=== PATIENT | female | born 1940 | race Caucasian/White ===

== ENCOUNTER 2018-08-11 16:35 | Observation (INO) | payer MEDICARE ==
[2018-08-11] MEDS ORDERED: LIDOCAINE 1% 10 ML VIAL INJ ONE (17:11)
[2018-08-11] MEDS ORDERED: NALOXONE HCL INJ 1 MG/ML SYG ONE (17:12)
--- NOTE | 2018-08-11 17:55 | ED.PDOC ---
History of Present Illness - General Chief Complaint: Unresponsive Stated Complaint: Unresponsive Time Seen by Provider: 08/11/18 16:52 Source: patient, EMS Exam Limitations: clinical condition - History of Present Illness Initial Comments: Patient presents after being found unresponsive this afternoon by a family member. She was last seen normal last night. The patient says that she remembers taking her normal medications, which include narcotics, last night then going to bed. The next thing she knew, she was here. Her GCS was 14 when she arrived. No other information is available because the patient cannot remember any events that occurred today. Timing/Duration: unsure Severity: moderate Improving Factors: nothing Worsening Factors: nothing Associated Symptoms: denies symptoms Allergies/Adverse Reactions: Allergies Iodine Allergy (Unknown, Unverified 04/24/13 15:41) Home Medications: Ambulatory Orders Atorvastatin Calcium [Lipitor] 40 mg PO DAILY 05/05/13 Insulin Isophane (Human) [Novolin N] 56 unit SC BEDTIME 05/05/13 Aspirin [Aspirin Adult Low Dose] 81 mg PO DAILY 01/28/15 Metformin HCl [Glucophage] 1,000 mg PO BID 01/28/15 glipiZIDE [Glucotrol] 20 mg PO BID 01/28/15 Gemfibrozil [Lopid] 600 mg PO DAILY 07/22/15 Lisinopril 20 mg PO DAILY 07/22/15 Meloxicam [Mobic] 7.5 mg PO DAILY 07/22/15 amLODIPine BESYLATE [Norvasc] 10 mg PO DAILY 07/22/15 Review of Systems - Review of Systems Constitutional: States: see HPI EENTM: States: no symptoms reported Respiratory: States: no symptoms reported Cardiology: States: no symptoms reported Gastrointestinal/Abdominal: States: no symptoms reported Genitourinary: States: no symptoms reported Musculoskeletal: States: no symptoms reported Skin: States: no symptoms reported Neurological: States: see HPI Endocrine: States: no symptoms reported Hematologic/Lymphatic: States: no symptoms reported Past Medical History (General) - Patient Medical History Hx Seizures: No Hx Stroke: No Hx Dementia: No Hx Asthma: No Hx of COPD: No Hx Cardiac Disorders: Yes - hypercholesterolemia Hx Congestive Heart Failure: No Hx Pacemaker: No Hx Hypertension: Yes Hx Thyroid Disease: No Hx Diabetes: Yes Hx Gastroesophageal Reflux: No Hx Renal Disease: No Hx Cancer: No Hx of HIV: No Hx Hepatitis C: No Hx MRSA: No Surgical History: other - Vaccination History Hx Influenza Vaccination: - Unknown Hx Pneumococcal Vaccination: - Unknown - Social History Hx Tobacco Use: No Hx Alcohol Use: No Hx Substance Use: No Hx Substance Use Treatment: No Hx Depression: No Family Medical History - Family History Mother Family History: Unknown Physical Exam - Physical Exam General Appearance: Other - Confused at presentation but alert and oriented x 3 after about 20 minutes. GCS 14 upon presentation, 15 after about 20 minutes. Eye Exam: bilateral normal Ears, Nose, Throat: normal ENT inspection Neck: non-tender, full range of motion, supple Respiratory: lungs clear, normal breath sounds Cardiovascular/Chest: normal peripheral pulses, regular rate, rhythm Gastrointestinal/Abdominal: normal bowel sounds, non tender, soft Back Exam: normal inspection, no CVA tenderness Extremity: normal range of motion, non-tender, normal inspection Neurologic: storage engineer II-XII nml as tested, no motor/sensory deficits, alert, normal mood/affect, oriented x 3 Skin Exam: normal color Lymphatic: no adenopathy Progress - Progress Progress: 08/11/18 20:24 Laboratory Tests 08/11/18 08/11/18 08/11/18 16:53 17:52 18:03 WBC RBC Hgb Hct MCV MCH MCHC RDW Plt Count MPV Absolute Neuts (auto) Absolute Lymphs (auto) Absolute Monos (auto) Absolute Eos (auto) Absolute Basos (auto) Neutrophils % Lymphocytes % Monocytes % Eosinophils % Basophils % PT 10.2 INR 1.02 PTT (SP) 25.7 D-Dimer, Quantitative Sodium Potassium Chloride Carbon Dioxide Anion Gap BUN Creatinine BUN/Creatinine Ratio POC Glucose < 40 L* Random Glucose Serum Osmolality Calcium Total Bilirubin AST ALT Alkaline Phosphatase Creatine Kinase CK-MB (CK-2) CK-MB (CK-2) % Troponin I B-Natriuretic Peptide Serum Total Protein Albumin Globulin Albumin/Globulin Ratio Urine Color Urine Appearance Urine pH Ur Specific Ragley Urine Protein Urine Glucose (UA) Urine Ketones Urine Blood Urine Nitrite Urine Bilirubin Urine Urobilinogen Ur Leukocyte Esterase Urine RBC Urine WBC Ur Epithelial Cells Urine Bacteria Salicylates Urine Opiates Screen Positive H Acetaminophen Urine Barbiturates Negative Ur Phencyclidine Scrn Negative U Amphetamin/Meth Scrn Negative U Benzodiazepines Scrn Negative U Cocaine Metab Screen Negative U Cannabinoids Screen Negative 08/11/18 08/11/18 08/11/18 18:04 18:32 18:32 WBC 6.0 RBC 3.93 L Hgb 11.5 L Hct 35.0 L MCV 89.2 MCH 29.3 MCHC 32.9 L RDW 15.5 H Plt Count 362 MPV 8.0 Absolute Neuts (auto) 5.30 Absolute Lymphs (auto) 0.30 L Absolute Monos (auto) 0.40 Absolute Eos (auto) 0.00 Absolute Basos (auto) 0.00 Neutrophils % 88.2 H Lymphocytes % 4.9 L Monocytes % 6.2 Eosinophils % 0.6 L Basophils % 0.1 PT INR PTT (SP) D-Dimer, Quantitative Sodium 139 Potassium 3.7 Chloride 99 L Carbon Dioxide 27 Anion Gap 16.7 BUN 12 Creatinine 0.80 BUN/Creatinine Ratio 15.0 POC Glucose Random Glucose Cancelled 165 H Serum Osmolality 281.0 Calcium 8.8 Total Bilirubin 0.3 AST 25 ALT 14 Alkaline Phosphatase 84 Creatine Kinase 151 H CK-MB (CK-2) 5.8 H* CK-MB (CK-2) % 3.84 Troponin I 0.02 B-Natriuretic Peptide 117.0 H Serum Total Protein 7.6 Albumin 4.0 Globulin 3.6 H Albumin/Globulin Ratio 1.1 Urine Color Urine Appearance Urine pH Ur Specific Ragley Urine Protein Urine Glucose (UA) Urine Ketones Urine Blood Urine Nitrite Urine Bilirubin Urine Urobilinogen Ur Leukocyte Esterase Urine RBC Urine WBC Ur Epithelial Cells Urine Bacteria Salicylates Urine Opiates Screen Acetaminophen Urine Barbiturates Ur Phencyclidine Scrn U Amphetamin/Meth Scrn U Benzodiazepines Scrn U Cocaine Metab Screen U Cannabinoids Screen 08/11/18 08/11/18 08/11/18 18:32 18:32 19:26 WBC RBC Hgb Hct MCV MCH MCHC RDW Plt Count MPV Absolute Neuts (auto) Absolute Lymphs (auto) Absolute Monos (auto) Absolute Eos (auto) Absolute Basos (auto) Neutrophils % Lymphocytes % Monocytes % Eosinophils % Basophils % PT INR PTT (SP) D-Dimer, Quantitative 4.02 H* Sodium Potassium Chloride Carbon Dioxide Anion Gap BUN Creatinine BUN/Creatinine Ratio POC Glucose Random Glucose Serum Osmolality Calcium Total Bilirubin AST ALT Alkaline Phosphatase Creatine Kinase CK-MB (CK-2) CK-MB (CK-2) % Troponin I B-Natriuretic Peptide Serum Total Protein Albumin Globulin Albumin/Globulin Ratio Urine Color Yellow Urine Appearance Clear Urine pH 7.0 Ur Specific Ragley 1.025 Urine Protein 100 H Urine Glucose (UA) 100 H Urine Ketones Trace Urine Blood Negative Urine Nitrite Negative Urine Bilirubin Negative Urine Urobilinogen 1.0 Ur Leukocyte Esterase Negative Urine RBC 1-3 Urine WBC 3-5 H Ur Epithelial Cells 1-3 Urine Bacteria Rare Salicylates < 4.0 Urine Opiates Screen Acetaminophen < 10.0 L Urine Barbiturates Ur Phencyclidine Scrn U Amphetamin/Meth Scrn U Benzodiazepines Scrn U Cocaine Metab Screen U Cannabinoids Screen Patient returned to her baseline mental status quickly in the E.D. She was given an amp of D50 just after her FSBG read 40. There is concern that the patient could return to a hypoglycemic state so she was admitted for observation and likely adjustment of her hypoglycemics. Patient voiced understanding and agreement with the plan. Departure - Departure Clinical Impression: Hypoglycemia Disposition: Admit Patient Condition: Good Departure Forms: ED Discharge - Pt. Copy, Patient Portal Self Enrollment Diet: diabetic diet Activity: increase activity as tolerated Referrals: [facility]ER [Primary Care Provider] - 1-2 Weeks Home Medications: Ambulatory Orders Atorvastatin Calcium [Lipitor] 40 mg PO DAILY 05/05/13 Insulin Isophane (Human) [Novolin N] 56 unit SC BEDTIME 05/05/13 Aspirin [Aspirin Adult Low Dose] 81 mg PO DAILY 01/28/15 Metformin HCl [Glucophage] 1,000 mg PO BID 01/28/15 glipiZIDE [Glucotrol] 20 mg PO BID 01/28/15 Gemfibrozil [Lopid] 600 mg PO DAILY 07/22/15 Lisinopril 20 mg PO DAILY 07/22/15 Meloxicam [Mobic] 7.5 mg PO DAILY 07/22/15 amLODIPine BESYLATE [Norvasc] 10 mg PO DAILY 07/22/15
[2018-08-11] MEDS ORDERED: DEXTROSE 50% 25 GM/50 ML SYG IV ONE (17:58)
--- NOTE | 2018-08-11 18:29 | RAD ---
EXAM DESCRIPTION: AP view of the chest CLINICAL HISTORY:78 years Female, unresponsive Comparison: None FINDINGS: No focal lung consolidation. No pleural effusion. No pneumothorax. Cardiac silhouette is at the upper limits of normal for size which may be accentuated by low lung volumes. No acute osseous abnormality. Soft tissues are unremarkable. IMPRESSION: No acute findings. No focal lung consolidation. Electronically signed by: Mike Antoine DO 08/11/2018 6:26 PM [facility]
--- NOTE | 2018-08-11 18:34 | CT ---
CLINICAL HISTORY: found unresponsive today, alert now COMPARISON: None. TECHNIQUE: CT HEAD WITHOUT IV CONTRAST on 08/11/2018 5:52 PM SIGNALMAN This exam was performed according to our departmental dose-optimization program, which includes automated exposure control, adjustment of the mA and/or kV according to patient size and/or use of iterative reconstruction technique. FINDINGS: There is no acute hemorrhage, mass effect or midline shift. Child-white differentiation is preserved. There is no hydrocephalus. There is no significant volume loss for age. There are mild patchy hypodensities within the periventricular and subcortical white matter, consistent with microangiopathic ischemic changes. The calvarium is intact. Orbits and globes are unremarkable. The paranasal sinuses are clear. Mastoid air cells are clear. IMPRESSION: No acute intracranial findings. Electronically signed by: Johnny Clinton MD 08/11/2018 6:31 PM SIGNALMAN
--- NOTE | 2018-08-11 21:48 | HP ---
SUPERVISING PHYSICIAN: Jerardo Almaguer MD CHIEF COMPLAINT: Unresponsive. HISTORY OF PRESENT ILLNESS: This is a 78-year-old female patient who said she went to bed at about 9 PM on Sunday evening. She got up at 3 AM to go to the bathroom and she does not remember anything after that. Her family tried to get in touch with her this morning and they were unable to get in touch with her. EMS went to her house and she was in her bed when they arrived. The patient cannot remember any events that occurred after 3 AM. In the Emergency Room, her vital signs showed temperature 96.4, heart rate 88, blood pressure 178/97, respiratory rate 14 and very shallow, O2 saturation 98% on room air, GCS was 14. Blood work was done and showed an unremarkable CBC with electrolytes within normal limits. Glucose was less than 40. She was given some D50. Glucose went up to 165 and shortly thereafter, it was 51. She was given D50 again and her blood sugar went up to 184. Her creatinine kinase was 151 with a CK-MB 5.8, troponin 0.02, BNP 117. Urinalysis was unremarkable. CT of the head showed no acute intracranial abnormality. A chest x-ray showed no acute findings, no focal lung consolidations. She sees Margoth Cassidy NP, in [place]. She does have a significant history of diabetes mellitus, type 2 on long-acting insulin as well as hypertension. She recently had back surgery in June of this year in [place]. I was called for hospital admission. Upon examining the patient and getting her history, it was unclear how much Levemir she takes at night. She told me she either takes 50 units or 63 units before bedtime. I asked her how she knew which dosing to take and she said if her blood sugar is "low" in the morning, she takes 50 units of Levemir. If her blood sugar "high," she takes 63 units of Levemir. Her primary nurse states she takes 56 units at night, so her insulin dosage is unknown at this time. PAST MEDICAL HISTORY: 1. Hypertension. 2. Diabetes mellitus, type 2, on long-acting insulin. 3. Chronic back pain. 4. Diabetic neuropathy. 5. Hyperlipidemia. PAST SURGICAL HISTORY: 1. Appendectomy. 2. Back surgery in June of 2018. OUTPATIENT MEDICATIONS: 1. Gemfibrozil. 2. Glyburide. 3. Levemir insulin. 4. Acetaminophen with codeine. 5. Amlodipine. 6. Aspirin. 7. Atorvastatin. 8. Bisacodyl. 9. Diphenhydramine. 10. Gabapentin. 11. Lisinopril. 12. Meloxicam. 13. Metformin. 14. Methocarbamol. She told her primary nurse that her nighttime insulin was Novolin N. She told me she took Levemir. ALLERGIES: IODINE. FAMILY HISTORY: Unknown. SOCIAL HISTORY: She lives alone. She quit smoking approximately 15 years ago. She denies any ETOH or illicit drug use. REVIEW OF SYSTEMS: GENERAL: Negative for fever, fatigue or weight changes. HEENT: Negative for sinus symptoms, ear pain, vision changes or sore throat. RESPIRATORY: Negative for wheezing, coughing or shortness of breath. CARDIAC: Negative for chest pain, palpitations or tachycardia. GASTROINTESTINAL: Negative for nausea, vomiting, diarrhea, constipation. GENITOURINARY: Negative for hematuria, dysuria or polyuria. MUSCULOSKELETAL: Complains of chronic back pain, otherwise no arthralgias, myalgias. SKIN: Negative for lesions or rashes. NEUROLOGIC: As per the history of present illness. PHYSICAL EXAMINATION: VITAL SIGNS: Temperature 98.6. Heart rate 95. Blood pressure 171/73. Respiratory rate 22. O2 saturation 90% on room air. GENERAL: This is a 78-year-old female patient who is sitting on the side of her bed. She is in no acute distress. HEENT: Normocephalic, atraumatic. Pupils are equal and reactive. Oropharynx is clear. NECK: Supple without mass. RESPIRATORY: Essentially clear to auscultation bilaterally. CHEST: There is equal rise and fall of the chest with inspiration and expiration. CARDIOVASCULAR: Regular rate and rhythm. GASTROINTESTINAL: Abdomen is soft, nondistended, nontender. Bowel sounds are positive. BACK: She does have an incision on her back that is without drainage, erythema or complications. EXTREMITIES: No cyanosis, clubbing or edema. NEUROLOGIC: Awake and alert. She is oriented times three, but she gets quite confused with some of her history as well as her medications. Cranial nerves II-XII are grossly intact. SKIN: Warm and dry. LABORATORY: Labs and films are as per history of present illness. IMPRESSION: 1. Hypoglycemia with blood sugar less than 40 in the Emergency Room. She has diabetes mellitus, type 2, on oral diabetic medications as well as long- acting insulin. 2. Loss of consciousness secondary to #1, unknown amount of time. 3. Self-care deficit. 4. History of recent spinal surgery in June of 2018. 5. Hypertension. 6. Hyperlipidemia. PLAN: We will place the patient in Observation. I will do q.2h. blood sugar checks until the AM. If those are stable, she will be changed to blood sugars a.c. and h.s. with a sliding scale insulin. I have also done neuro checks q.4h. I consulted [employer] Supervisor and we will need to clarify her medications as well as plan her discharge with at least getting home health. The patient has not been in our hospital before and we have incomplete records on her, but she will definitely need some help on discharge. I have restarted her home medications with the exception of her Glyburide and due to her problems with hypoglycemia, I have discontinued that off of her home medications. I have not restarted her long-acting insulin as I am not sure what she even takes for that. I also consulted physical therapy for discharge planning as well as she has recently had back surgery and most of her complaints have been of lower back pain. It also may be helpful if we get an appointment with a local doctor, maybe she could see Dr. Plasencia at [facility] for closer monitoring of her diabetes as she did tell me it is quite difficult for her to get to [place] for her doctor appointments. Otherwise, we may have to start very conservatively with her diabetic medications. We will continue to monitor the patient closely and follow as indicated. #[id number] [facility]
[2018-08-11] MEDS ORDERED: ONDANSETRON INJ 4 MG/2 ML VIAL IV PRN (22:04)
[2018-08-11] MEDS ORDERED: SODIUM CHLORIDE 0.9% (FLUSH) 10 ML SYG IV PRN (22:04)
[2018-08-11] MEDS ORDERED: DEXTROSE 50% 25 GM/50 ML SYG IV PRN (22:07)
[2018-08-11] MEDS ORDERED: GLUCAGON INJ 1 MG VIAL SUBCU PRN (22:07)
[2018-08-11] MEDS ORDERED: IV SET AND CAP CHANGE INJ INJ SCH (22:30)
[2018-08-12] MEDS: INSULIN LISPRO 100 UNITS/ML PEN SUBCU SCH ×6 (00:12→11:30)
[2018-08-12] MEDS ORDERED: ACETAMINOPHEN W/COD #3 TAB 1 EA TAB PO ONE (00:36)
[2018-08-12] MEDS ORDERED: BISACODYL TAB 5 MG TAB PO PRN (01:10)
[2018-08-12] MEDS ORDERED: ACETAMINOPHEN W/COD #3 TAB (ER Disp) PO PRN (01:10)
[2018-08-12] MEDS ORDERED: METHOCARBAMOL 750 MG TAB PO PRN (01:10)
[2018-08-12] MEDS ORDERED: cloNIDine HCL 0.1 MG TAB PO ONE (06:18)
[2018-08-12] MEDS ORDERED: LISINOPRIL 10 MG TAB ONE (08:17)
[2018-08-12] MEDS ORDERED: ATORVASTATIN 20 MG TAB PO ONE (08:18)
[2018-08-12] MEDS ORDERED: MAGNESIUM SULFATE PREMIX 2GM 2 GM in PREMIX BAG 1 BAG IVPB ONE (08:20)
[2018-08-12] MEDS ORDERED: MAGNESIUM SULFATE PREMIX 2GM 50 ML IVPB ONE (08:26)
[2018-08-12] MEDS ORDERED: amLODIPine BESYLATE 5 MG TAB PO SCH (09:00)
[2018-08-12] MEDS ORDERED: NON-FORMULARY MEDICATION 1 EA MIS (Lisinopril [Lisinopril] 20 MG) PO SCH (09:00)
[2018-08-12] MEDS ORDERED: metFORMIN HCL 500 MG TAB PO SCH ×2 (09:00→17:00)
[2018-08-12] MEDS ORDERED: ASPIRIN (ENTERIC COATED) 81 MG TAB PO SCH (09:00)
[2018-08-12] MEDS ORDERED: GABAPENTIN 100 MG CAP PO SCH (09:00)
[2018-08-12] MEDS ORDERED: NON-FORMULARY MEDICATION 1 EA MIS (Atorvastatin Calcium [Lipitor] 40 MG) PO SCH (09:00)
[2018-08-12] MEDS ORDERED: MELOXICAM 7.5 MG TAB PO SCH (09:00)
[2018-08-12 09:53] VITALS: BP 184/72; TEMP 97.7; O2SAT 97
[2018-08-12] MEDS ORDERED: ACETAMINOPHEN W/COD #3 TAB 1 EA TAB PO PRN (10:44)
[2018-08-12] MEDS ORDERED: diphenhydrAMINE HCL 25 MG CAP PO SCH (21:00)
[2018-08-13] MEDS ORDERED: LISINOPRIL 10 MG TAB PO SCH (09:00)
[2018-08-13] MEDS ORDERED: ATORVASTATIN 20 MG TAB PO SCH (21:00)
== END 2018-08-12 13:14 | disposition home or self-care (01) ==
LOC: ER 16:35 → MS 21:47
PROVIDERS: ADMIT Nurse Practitioner Acute Care; ATTEND Nurse Practitioner Family
DX: E11.649 Type 2 diabetes mellitus with hypoglycemia without coma (principal); R55 Syncope and collapse; I10 Essential (primary) hypertension; E78.5 Hyperlipidemia, unspecified; E11.42 Type 2 diabetes mellitus with diabetic polyneuropathy; G89.29 Other chronic pain; Z79.4 Long term (current) use of insulin; Z79.1 Long term (current) use of non-steroidal anti-inflammatories (NSAID); Z79.82 Long term (current) use of aspirin; Z79.899 Other long term (current) drug therapy; Z88.8 Allergy status to other drugs, medicaments and biological substances; Z87.891 Personal history of nicotine dependence
CPT/HCPCS: 96365; 96372; J7799; J2310; J3475; J1815; 85379; 82553; 80329 ×2; 80053 ×2; 80307; 82948 ×7; 36415 ×4; 81001; 85025 ×2; 82550; 83735; 85730; 85610; 84484; 83880; 36416 ×3; 71045; 70450; 94760 ×2; 97116; G8978; G8979; G8980; 97162; 99285; 93005; G0378; G0463

== ENCOUNTER 2019-08-21 16:30 | Inpatient (IN) | payer MEDICARE ==
--- NOTE | 2019-08-21 17:03 | ED.PDOC ---
History of Present Illness - General Chief Complaint: Diabetic Complaint Stated Complaint: low blood sugar Time Seen by Provider: 08/21/19 16:40 - History of Present Illness Initial Comments: The patient is a 79 year old who presents to the ED complaining of low blood sugar. Family states that they had been trying to get a hold of the patient at home but were unable to reach her. They arrived to her house to find her confused in her recliner holding her feet near a heater. She was found to be hypoglycemic by EMS (initial blood glucose "low") and she was given soda and crackers with improvement in her mental status. At the time of arrival she is at her baseline, does not have any complaints except for pain to her feet. She states that over the past two days she has not been eating or drinking well due to vomiting. She does not have any abdominal pain, diarrhea, or vomiting today. She also says that her blood glucose this morning was 56 prior to taking her insulin. She did, in fact, take her usual dose of insulin and did not eat breakfast. No other complaints at this time. Allergies/Adverse Reactions: Allergies Iodine Allergy (Unknown, Verified 08/12/18 09:25) Home Medications: Ambulatory Orders Atorvastatin Calcium [Lipitor] 20 mg PO DAILY 05/05/13 Aspirin [Aspirin Adult Low Dose] 81 mg PO DAILY 01/28/15 Metformin HCl [Glucophage] 1,000 mg PO BID 01/28/15 Gemfibrozil [Lopid] 600 mg PO BID 07/22/15 Meloxicam [Mobic] 7.5 mg PO BID 07/22/15 amLODIPine BESYLATE [Norvasc] 10 mg PO DAILY 07/22/15 Acetaminophen W/ Codeine [Tylenol W/ CODEINE #3] 1 ea PO QID PRN 08/11/18 Bisacodyl [Dulcolax] 5 mg PO BID PRN 08/11/18 Gabapentin 100 mg PO TID 08/11/18 Lisinopril 20 mg PO DAILY 08/11/18 Methocarbamol 750 mg PO QID PRN 08/11/18 diphenhydrAMINE HCL [Benadryl] 50 mg PO BEDTIME 08/11/18 Insulin NPH (Human) (Isophane) [Novolin N] 14 unit SC BID #1 bottle 08/12/18 Review of Systems - Review of Systems Constitutional: States: malaise, weakness EENTM: States: no symptoms reported Respiratory: Denies: cough, short of breath Cardiology: Denies: chest pain, palpitations Gastrointestinal/Abdominal: States: nausea, vomiting Genitourinary: States: frequency Musculoskeletal: States: no symptoms reported Skin: States: no symptoms reported Neurological: States: other - confusion Endocrine: States: no symptoms reported Hematologic/Lymphatic: States: no symptoms reported All other Systems: Reviewed and Negative Past Medical History (General) - Patient Medical History Hx Seizures: No Hx Stroke: No Hx Dementia: No Hx Asthma: No Hx of COPD: No Hx Cardiac Disorders: Yes - hypercholesterolemia Hx Congestive Heart Failure: No Hx Pacemaker: No Hx Hypertension: Yes Hx Thyroid Disease: No Hx Diabetes: Yes Hx Gastroesophageal Reflux: No Hx Renal Disease: No Hx Cancer: No Hx of HIV: No Hx Hepatitis C: No Hx MRSA: No Surgical History: appendectomy - Vaccination History Hx Influenza Vaccination: Yes Hx Pneumococcal Vaccination: Yes - Social History Hx Tobacco Use: No Hx Alcohol Use: No Hx Substance Use: No Hx Substance Use Treatment: No Hx Depression: No Hx Physical Abuse: No Hx Emotional Abuse: No Family Medical History - Family History Mother Family History: Unknown Hx Family Cancer: Yes Physical Exam - Physical Exam General Appearance: Alert, Comfortable, No apparent distress Ears, Nose, Throat: hearing grossly normal, normal ENT inspection Neck: non-tender, full range of motion Respiratory: lungs clear, normal breath sounds Cardiovascular/Chest: normal peripheral pulses, regular rate, rhythm, no edema Gastrointestinal/Abdominal: normal bowel sounds, non tender, soft Extremity: other - partial thickness mckee to bilateral feet Neurologic: no motor/sensory deficits, alert, normal mood/affect, oriented x 3 Skin Exam: normal color, warm/dry Progress - Progress Progress: 08/21/19 21:57 Patient arrives with altered mental status secondary to hypoglycemia. Initially found to have lactic acidosis thought to be related to hypoglycemic seizure activity. She is also found to have acute kidney injury with hyperkalemia, no significant EKG changes. She was hydrated and labs repeated. While in the ED she had complete resolution of her symptoms and is tolerating PO, only complains of mckee to her feet. Her lactic acid improved but she remained hyperkalemic with kidney injury. She was treated with calcium, bicarbonate, insulin/d50 and kayexalate. She also received rocephin for her urinary tract infection. She does not have evidence of septic shock. 08/21/19 22:18 Discussed with hospitalist Nereida Archibald, reviewed history and lab findings. Will admit for dehydration, UTI, PADILLA and hyperkalemia. Patient and family updated and are agreeable to this plan of care. - Results/Orders Results/Orders: 08/21/19 19:15 EKG STAT 08/21/19 20:20 Urine Culture Stat 08/21/19 21:47 cefTRIAXone SODIUM [Rocephin] 1 gm Sodium Chl 0.9% 50Ml Min-Bag+ [NS 50ml MINI-BAG+] 50 ml IVPB ONCE 08/21/19 21:48 IV Care:Saline Lock per Protoc QSHIFT Insulin, Reg.(Human) [HumuLIN R] DOSE units IV ONCE ONE Sodium Chloride 0.9% (Flush) [Saline Flush Syringe] 3 ml IV PRN PRN Laboratory Results - last 24 hr 08/21/19 08/21/19 08/21/19 17:14 17:14 18:22 WBC 10.1 RBC 3.46 L Hgb 10.5 L Hct 32.0 L MCV 92.6 MCH 30.3 MCHC 32.7 L RDW 14.6 H Plt Count 323 MPV 8.5 Absolute Neuts (auto) 9.20 H Absolute Lymphs (auto) 0.50 L Absolute Monos (auto) 0.30 Absolute Eos (auto) 0.00 Absolute Basos (auto) 0.00 Neutrophils % 91.5 H Lymphocytes % 5.1 L Monocytes % 3.2 Eosinophils % 0.1 L Basophils % 0.1 pCO2 36 pO2 83 HCO3 16.0 ABG pH 7.253 L* ABG O2 Saturation 95.4 ABG Base Excess -10.3 ABG Deoxyhemoglobin 4.5 Oxyhemoglobin % 93.7 L Carboxyhemoglobin % 0.7 Methemoglobin % Sat 1.1 Calc Total Hemoglobin 10.0 L Sodium 139 Potassium 5.7 H Chloride 105 Carbon Dioxide 20 L Anion Gap 19.7 H BUN 45 H Creatinine 2.79 H BUN/Creatinine Ratio 16.1 Random Glucose 147 H Serum Osmolality 291.8 Lactic Acid Calcium 9.6 Urine Color Urine Appearance Urine pH Ur Specific [place] Urine Protein Urine Glucose (UA) Urine Ketones Urine Blood Urine Nitrite Urine Bilirubin Urine Urobilinogen Ur Leukocyte Esterase Urine RBC Urine WBC Ur Epithelial Cells Urine Bacteria Hyaline Casts 08/21/19 08/21/19 08/21/19 18:23 20:20 21:07 WBC RBC Hgb Hct MCV MCH MCHC RDW Plt Count MPV Absolute Neuts (auto) Absolute Lymphs (auto) Absolute Monos (auto) Absolute Eos (auto) Absolute Basos (auto) Neutrophils % Lymphocytes % Monocytes % Eosinophils % Basophils % pCO2 pO2 HCO3 ABG pH ABG O2 Saturation ABG Base Excess ABG Deoxyhemoglobin Oxyhemoglobin % Carboxyhemoglobin % Methemoglobin % Sat Calc Total Hemoglobin Sodium 139 Potassium 6.2 H Chloride 109 Carbon Dioxide 19 L Anion Gap 17.2 BUN 40 H Creatinine 2.34 H BUN/Creatinine Ratio 17.1 Random Glucose 157 H Serum Osmolality 290.5 Lactic Acid 4.1 H* Calcium 8.7 Urine Color Yellow Urine Appearance Sl cloudy Urine pH 5.0 Ur Specific [place] 1.015 Urine Protein Negative Urine Glucose (UA) Negative Urine Ketones Negative Urine Blood Negative Urine Nitrite Negative Urine Bilirubin Negative Urine Urobilinogen 0.2 Ur Leukocyte Esterase Moderate H Urine RBC 0-1 Urine WBC 20-30 H Ur Epithelial Cells 0 Urine Bacteria Rare Hyaline Casts 1-3 08/21/19 21:07 WBC RBC Hgb Hct MCV MCH MCHC RDW Plt Count MPV Absolute Neuts (auto) Absolute Lymphs (auto) Absolute Monos (auto) Absolute Eos (auto) Absolute Basos (auto) Neutrophils % Lymphocytes % Monocytes % Eosinophils % Basophils % pCO2 pO2 HCO3 ABG pH ABG O2 Saturation ABG Base Excess ABG Deoxyhemoglobin Oxyhemoglobin % Carboxyhemoglobin % Methemoglobin % Sat Calc Total Hemoglobin Sodium Potassium Chloride Carbon Dioxide Anion Gap BUN Creatinine BUN/Creatinine Ratio Random Glucose Serum Osmolality Lactic Acid 2.5 H* Calcium Urine Color Urine Appearance Urine pH Ur Specific [place] Urine Protein Urine Glucose (UA) Urine Ketones Urine Blood Urine Nitrite Urine Bilirubin Urine Urobilinogen Ur Leukocyte Esterase Urine RBC Urine WBC Ur Epithelial Cells Urine Bacteria Hyaline Casts - EKG/XRAY/CT Comments: 1830 normal sinus rhythm rate 94 normal axis, normal interval, peaked T Departure - Departure Clinical Impression: Dehydration, Acute kidney injury, Hyperkalemia Disposition: Admit Patient Condition: Fair Departure Forms: ED Discharge - Pt. Copy, Patient Portal Self Enrollment Instructions: DI for Diabetes Type 2 Referrals: [facility] [employer] [facility] [Primary Care Provider] - 1-2 Weeks Home Medications: Ambulatory Orders Atorvastatin Calcium [Lipitor] 20 mg PO DAILY 05/05/13 Aspirin [Aspirin Adult Low Dose] 81 mg PO DAILY 01/28/15 Metformin HCl [Glucophage] 1,000 mg PO BID 01/28/15 Gemfibrozil [Lopid] 600 mg PO BID 07/22/15 Meloxicam [Mobic] 7.5 mg PO BID 07/22/15 amLODIPine BESYLATE [Norvasc] 10 mg PO DAILY 07/22/15 Acetaminophen W/ Codeine [Tylenol W/ CODEINE #3] 1 ea PO QID PRN 08/11/18 Bisacodyl [Dulcolax] 5 mg PO BID PRN 08/11/18 Gabapentin 100 mg PO TID 08/11/18 Lisinopril 20 mg PO DAILY 08/11/18 Methocarbamol 750 mg PO QID PRN 08/11/18 diphenhydrAMINE HCL [Benadryl] 50 mg PO BEDTIME 08/11/18 Insulin NPH (Human) (Isophane) [Novolin N] 14 unit SC BID #1 bottle 08/12/18
[2019-08-21] MEDS ORDERED: SODIUM CHLORIDE 0.9% 1000ML 1,000 ML IVS ONE (18:21)
[2019-08-21] MEDS ORDERED: SODIUM CHLORIDE 0.9% 500ML 500 ML IVS ONE (18:54)
[2019-08-21] MEDS ORDERED: HYDROcodone 5MG/APAP 325MG 1 EA TAB PO ONE ×2 (19:42→21:20)
[2019-08-21] MEDS ORDERED: cefTRIAXone SODIUM 1 GM in SODIUM CHL 0.9% 50ML MIN-BAG+ 50 ML IVPB ONE (21:47)
[2019-08-21] MEDS ORDERED: INSULIN, REG.(HUMAN) 100 U/ML VIAL IV ONE (21:48)
[2019-08-21] MEDS ORDERED: SOD POLYSTYRENE SULFONATE 15 GM/60 ML BTTL PO ONE (21:48)
[2019-08-21] MEDS ORDERED: SODIUM CHLORIDE 0.9% (FLUSH) 10 ML SYG IV PRN (21:48)
[2019-08-21] MEDS ORDERED: ALBUTEROL SULFATE 2.5 MG/3 ML VIAL NEB ONE (21:48)
[2019-08-21] MEDS ORDERED: CALCIUM GLUCONATE INJ 1 GM/10 ML VIAL IV ONE (21:48)
[2019-08-21] MEDS ORDERED: SODIUM BICARBONATE SYRINGE 50 MEQ/50 ML SYG IV ONE (21:48)
[2019-08-21] MEDS ORDERED: cefTRIAXone SODIUM 1 GM VIAL ONE (21:52)
[2019-08-21] MEDS ORDERED: SODIUM CHL 0.9% 50ML MIN-BAG+ 50 ML IVPB ONE (21:53)
[2019-08-21] MEDS ORDERED: SODIUM BICARBONATE VIAL 50 MEQ/50 ML VIAL ONE (21:58)
[2019-08-21] MEDS ORDERED: LACTATED RINGERS 1,000 ML IVS PRN (22:02)
[2019-08-22] MEDS ORDERED: SODIUM BICARBONATE SYRINGE 75 MEQ in DEXTROSE 5% 1000ML 1,000 ML IV PRN (00:13)
[2019-08-22] MEDS ORDERED: SODIUM CHLORIDE 0.9% (FLUSH) 10 ML SYG IV PRN (00:15)
[2019-08-22] MEDS ORDERED: ALBUTEROL SULFATE 2.5 MG/3 ML VIAL NEB PRN (00:15)
[2019-08-22] MEDS ORDERED: ONDANSETRON INJ 4 MG/2 ML VIAL IV PRN (00:15)
[2019-08-22] MEDS ORDERED: ACETAMINOPHEN 325 MG TAB PO PRN (00:15)
[2019-08-22] MEDS ORDERED: ACETAMINOPHEN W/COD #3 TAB (ER Disp) PO PRN (00:21)
[2019-08-22] MEDS ORDERED: DEXTROSE 5% 1000ML 1,000 ML IVS ONE (00:42)
[2019-08-22] MEDS ORDERED: SODIUM BICARBONATE VIAL 50 MEQ/50 ML VIAL ONE (00:42)
[2019-08-22] MEDS ORDERED: SODIUM CHL 0.9% 50ML MIN-BAG+ 50 ML IVPB ONE ×2 (00:42→19:56)
[2019-08-22] MEDS ORDERED: cefTRIAXone SODIUM 1 GM VIAL ONE ×2 (00:43→19:56)
[2019-08-22] MEDS: GABAPENTIN 100 MG CAP PO SCH ×4 (00:58→20:44)
[2019-08-22] MEDS: cefTRIAXone SODIUM 1 GM in SODIUM CHL 0.9% 50ML MIN-BAG+ 50 ML IVPB SCH (00:59)
[2019-08-22] MEDS: ACETAMINOPHEN W/COD #3 TAB 1 EA TAB PO PRN ×5 (01:02→23:32)
[2019-08-22] MEDS: IV SET AND CAP CHANGE INJ INJ SCH (01:48)
[2019-08-22] MEDS: ALBUTEROL SULFATE 2.5 MG/3 ML VIAL NEB SCH ×5 (04:52→20:06)
[2019-08-22] MEDS ORDERED: MELOXICAM 7.5 MG TAB PO SCH (09:00)
[2019-08-22] MEDS ORDERED: INSULIN,ISOP(HUMAN(NPH) 100 UNITS/ML PEN SUBCU SCH (09:00)
[2019-08-22] MEDS ORDERED: GLUCAGON INJ 1 MG VIAL SUBCU PRN (09:35)
[2019-08-22] MEDS ORDERED: DEXTROSE 10% 500ML IVPB PRN (09:35)
[2019-08-22] MEDS: metFORMIN HCL 500 MG TAB PO SCH (09:37)
[2019-08-22] MEDS: LISINOPRIL 10 MG TAB PO SCH (09:38)
[2019-08-22] MEDS: SODIUM CHLORIDE 0.9% (FLUSH) 10 ML SYG IV SCH ×2 (09:39→20:45)
[2019-08-22] MEDS: amLODIPine BESYLATE 5 MG TAB PO SCH (10:16)
[2019-08-22] MEDS: ASPIRIN (ENTERIC COATED) 81 MG TAB PO SCH (10:16)
[2019-08-22] MEDS: GEMFIBROZIL 600 MG TAB PO SCH ×2 (10:16→20:44)
[2019-08-22] MEDS: SILVER SULFADIAZINE 1 % 25 GM TUBE TOP SCH ×2 (10:19→20:45)
--- NOTE | 2019-08-22 10:52 | HP ---
SUPERVISING PHYSICIAN: Steven Washington MD CHIEF COMPLAINT: Hypoglycemia. HISTORY OF PRESENT ILLNESS: Ms. Barth is a 79-year-old female patient that was admitted to the Emergency Room earlier last night via EMS congestion low blood sugar. Her family endorses that they had been trying to get a hold of the patient at home, but were unable to reach her. They went her house, found her confused. EMS arrived and found the patient was significantly hypoglycemic with meter reading low. She was given soda and crackers, which did improve her mental status. At the time she arrived to the Emergency Room, she was basically at her baseline mental status without any significant complaints except some discomfort in her feet. She does endorse that over the last several days, she has not been eating or drinking very well due to emesis associated with nausea. She denied any abdominal pain or diarrhea on admission. She did endorse than her blood sugar on the morning before the initial incident that to her to the ER, her blood sugar was 56 and she did take her insulin, but did not eat breakfast. She had no additional complaints in the Emergency Room. Her labs initially showed she had a white count of 10,200 with hemoglobin 10.5, hematocrit 32.0. Potassium was high at 5.7 with anion gap of 19.7 and lactic acid 4.1 with BUN 45, creatinine 2.79. Calcium 9.6. Blood gases in the Emergency Room did show she was acidotic with pH 7.25, pCO2 36, pO2 83, bicarb 16. O2 saturation was 95.4. She was started on fluids as it was noted she was significantly dehydrated. Review of her assessment showed she had two areas on her big toes that showed blistering associated with being too close to the heater for an extended period of time. She was started on IV fluids and was then admitted to the hospital for dehydration, acute kidney injury and hypoglycemia. PAST MEDICAL HISTORY: 1. Hypertension. 2. Diabetes mellitus, type 2 on insulin. 3. Chronic back pain. 4. Diabetic neuropathy. 5. Hyperlipidemia. PAST SURGICAL HISTORY: 1. Appendectomy. 2. Back surgery in 2019. OUTPATIENT MEDICATIONS: 1. Benadryl 50 mg at bedtime. 2. Norvasc 10 mg daily. 3. Methocarbamol 750 mg q.i.d. as needed. 4. Metformin 1000 mg b.i.d. 5. Meloxicam 7.5 mg b.i.d. 6. Lisinopril 20 mg daily. 7. Novolin N 14 units subcutaneously b.i.d. 8. Lopid 600 mg b.i.d. 9. Gabapentin 100 mg b.i.d. 10. Dulcolax 5 mg b.i.d. p.r.n. 11. Lipitor 20 mg daily. 12. Aspirin 81 mg daily. 13. Tylenol #3 as needed q.i.d. ALLERGIES: IODINE. FAMILY HISTORY: Noncontributory. SOCIAL HISTORY: The patient does live alone. She has a remote history of smoking, but quit 15 years previously. She denies any alcohol or illicit drug use. She is retired and lives in [place], [place] and is . REVIEW OF SYSTEMS: CONSTITUTIONAL: Positive for general malaise and generalized weakness. HEENT: Negative for headaches, sore throats, earaches, nasal congestion, vision changes. RESPIRATORY: Denies coughing, wheezing or shortness of breath. CARDIOVASCULAR: Negative for chest pain, palpitations or syncopal episodes. GASTROINTESTINAL: Positive for nausea and vomiting. Denies abdominal pain, constipation or diarrhea. GENITOURINARY: Negative for dysuria, but has some increased frequency. Denies hematuria. MUSCULOSKELETAL: As noted in history of present illness. Pain to the lower extremities secondary to heat exposure and chronic diabetic neuropathy. SKIN: As noted in history of present illness, first degree mckee with blistering to the bilateral lower extremities. Denies any joint swelling or arthralgias. NEUROLOGIC: Positive for confusion associated with hypoglycemia. Denies ataxia, seizures or other neuro focal deficits other than generalized weakness. HEMATOLOGIC: Denies easy bruising, unexplained bleeding or transfusion reactions. PHYSICAL EXAMINATION: VITAL SIGNS: Temperature 96.4 on admission with heart rate 88, blood pressure 187/97, respirations 14, saturation 98% on room air. GENERAL: The patient appears to be in no acute distress. She is resting comfortably. She is alert. HEENT: Tympanic membranes clear bilaterally. Oropharynx is pink with dry mucous membranes. NECK: Supple, nontender with full range of motion. No jugular venous distention noted. RESPIRATORY: Lungs clear to auscultation bilaterally without any rhonchi, wheezes or rales. CARDIOVASCULAR: Regular rate and rhythm without any appreciable murmurs, gallops, or rubs. ABDOMEN: Soft, nontender. Positive bowel sounds. EXTREMITIES: Partial thickness first degree mckee with blistering to the bilateral feet, located mainly on the balls and big toe with some ecchymosis. NEUROLOGIC: The patient is alert and oriented times three. Cranial nerves II- XII are grossly intact. Facial features are symmetrical. Extraocular movements are within normal limits. There is no nystagmus noted. SKIN: Warm, pink and dry excepted as noted on extremity exam. LABORATORY: White count 4,200 with hemoglobin 8.4, hematocrit 25.5, platelet count 170,000. Differential without a left shift. Blood gas shows pH 7.25, pCO2 36, pO2 83, bicarb 16, saturation 95% on room air, -10.3 base excess. Carboxyhemoglobin within normal limits. Chemistries showed sodium 139, potassium 5.7, blood sugar 147 on arrival. Apparently in the field, EMS got a meter reading of low. Lactic acid initially on admission was 4.1. Three hours post admission to the Emergency Room, repeat lactic acid was 2.5. Calcium 9.6. Urinalysis showed a moderate amount of leukocyte esterase with microscopic revealing 40 to 50 WBCs, 0 to 1 epithelials, 1+ bacteria. MICROBIOLOGY: MRSA surveillance culture pending. Blood culture pending. Urine culture pending. RADIOLOGY: No radiographic imaging done. ASSESSMENT: 1. Acute dehydration due to nausea, vomiting and poor oral intake. 2. Acute kidney injury with associated hyperkalemia, likely secondary to #1 with prerenal azotemia state, exacerbated by home medications including lisinopril, Mobic and metformin. 3. Metabolic acidosis secondary to acute kidney failure and lactic acidosis, likely exacerbated by mckee to the lower extremities and dehydration with underlying infection resulting from a urinary tract infection exacerbated by nausea and vomiting. 4. Electrolyte imbalance with hyperkalemia. 5. Diabetes mellitus, type 2, with hypoglycemic episodes. 6. Partial thickness first degree mckee to the bilateral lower feet. No complicating factors other than the patient has a history of diabetic neuropathy and recent episode of hypoglycemia. 7. Anemia, normocytic/normochromic. No evidence of acute blood loss. 8. Urinary tract infection with cultures pending. 9. Hypertension, poorly controlled. 10. History of chronic back pain. PLAN: Ms. Barth is going to be admitted for close monitoring and fluid management with acute kidney injury, hydration and hypoglycemia. She initially was started on bicarb with D5W 75 mEq per liter. We will follow her BMPs as needed to further manage her IV fluids. I am going to hold her metformin, lisinopril and Mobic given her current creatinine clearance with a creatinine of 2. We will provide antiemetics and pain management as needed. We will monitor the mckee to the lower extremities. At this point, the blisters remain closed and we will allow those to progress without any intervention at this point. These seem to be superficial and fairly minor with less than 1% body surface area given the location of the mckee. We will continue with IV hydration. We will recheck her lactic acid to ensure that is normalizing. I started her on antibiotics for coverage of the urinary tract infection with Rocephin. We will await urine cultures. We will resume all her other medications, put her on a insulin sliding scale. We will have her on DVT per protocol with Lovenox. I anticipate her length of stay to be at least two to three days. We will follow her labs closely. Until the patient can transition to outpatient management, we will continue to monitor and treat as needed. #[id number] [facility]
[2019-08-22] MEDS ORDERED: INSULIN LISPRO 100 UNITS/ML PEN SUBCU ONE (11:44)
[2019-08-22] MEDS ORDERED: INSULIN DETEMIR 100 UNITS/ML PEN SUBCU ONE (11:44)
[2019-08-22] MEDS: INSULIN LISPRO 100 UNITS/ML PEN SUBCU SCH ×3 (11:58→21:18)
[2019-08-22] MEDS: SODIUM CHLORIDE 0.45% 1000ML 1,000 ML IVS PRN ×2 (12:28→20:50)
[2019-08-22] MEDS: ATORVASTATIN 20 MG TAB PO SCH (20:44)
[2019-08-22] MEDS: diphenhydrAMINE HCL 25 MG CAP PO SCH (20:44)
[2019-08-22] MEDS: ENOXAPARIN SODIUM 30 MG/0.3 ML SYG SUBCU SCH (20:44)
[2019-08-23] MEDS: cefTRIAXone SODIUM 1 GM in SODIUM CHL 0.9% 50ML MIN-BAG+ 50 ML IVPB SCH ×2 (00:07→23:58)
[2019-08-23] MEDS: ALBUTEROL SULFATE 2.5 MG/3 ML VIAL NEB SCH ×7 (00:13→23:37)
[2019-08-23] MEDS: SODIUM CHLORIDE 0.45% 1000ML 1,000 ML IVS PRN (05:36)
[2019-08-23] MEDS: INSULIN LISPRO 100 UNITS/ML PEN SUBCU SCH ×4 (07:30→21:51)
[2019-08-23] MEDS: SODIUM CHLORIDE 0.9% (FLUSH) 10 ML SYG IV SCH ×2 (10:25→20:38)
[2019-08-23] MEDS: ASPIRIN (ENTERIC COATED) 81 MG TAB PO SCH (10:25)
[2019-08-23] MEDS: GABAPENTIN 100 MG CAP PO SCH ×3 (10:25→20:37)
[2019-08-23] MEDS: GEMFIBROZIL 600 MG TAB PO SCH ×2 (10:25→20:37)
[2019-08-23] MEDS: amLODIPine BESYLATE 5 MG TAB PO SCH (10:25)
[2019-08-23] MEDS: ACETAMINOPHEN W/COD #3 TAB 1 EA TAB PO PRN ×3 (10:25→20:08)
[2019-08-23] MEDS: SILVER SULFADIAZINE 1 % 25 GM TUBE TOP SCH ×2 (10:29→20:38)
--- NOTE | 2019-08-23 15:42 | PN ---
SUPERVISING PHYSICIAN: Steven Washington MD DATE: 08/23/19 SUBJECTIVE: The patient is having a little bit more stable blood sugars now. She has not had any further complaints. She does have some pain in her feet related to the mckee but they remain closed with blisters in place. She is afebrile. OBJECTIVE: VITAL SIGNS: Temperature 98.1, pulse 85, blood pressure 128/70, respirations 16, oxygen saturation 94% on room air. GENERAL: The patient is resting comfortably, appears to be in no distress, she is alert. CHEST: Lung sounds remain clear. HEART: Regular rate and rhythm. ABDOMEN: Soft, nontender. Positive bowel sounds. ABDOMEN: Obese, but soft and nontender. Positive bowel sounds. EXTREMITIES: No cyanosis, clubbing or edema. NEUROLOGIC: Alert and oriented times three. LABORATORY: H&H now showing stable at 8.4 and 25.9 respectively. Differential shows to be without a left shift. White count 4,600. Chemistries show normal electrolytes with BUN 23, creatinine down to 2.03. Blood sugars are stabilized between 88 and 194. Calcium 8.3. ASSESSMENT: 1. Acute dehydration due to nausea, vomiting and poor oral intake. 2. Acute kidney injury with associated hyperkalemia, likely secondary to #1 with prerenal azotemia state, exacerbated by home medications including lisinopril, Mobic and metformin. 3. Metabolic acidosis secondary to acute kidney failure and lactic acidosis, likely exacerbated by mckee to the lower extremities and dehydration with underlying infection resulting from a urinary tract infection exacerbated by nausea and vomiting. 4. Electrolyte imbalance with hyperkalemia. 5. Diabetes mellitus, type 2, with hypoglycemic episodes. 6. Partial thickness first degree mckee to the bilateral lower feet. No complicating factors other than the patient has a history of diabetic neuropathy and recent episode of hypoglycemia. 7. Anemia, normocytic/normochromic. No evidence of acute blood loss. 8. Urinary tract infection with cultures pending. 9. Hypertension, poorly controlled. 10. History of chronic back pain. PLAN: Will go ahead and saline lock her today. She has had adequate oral intake. I have physical therapy evaluation for Sunday. Still waiting to find out what antibiotic she was on prior to admission which I think is resulting in her acute kidney injury. I would anticipate she will go home Sunday once she is evaluated and we will closely watch the mckee on her feet and will need to restart her home medications regarding her insulin including her metformin if possible, either tomorrow or Sunday, depending how her kidney function does. Will plan to repeat labs in the morning. She has antibiotic coverage for urinary tract infection and we are still waiting on culture results. Blood cultures remain negative. Until we can transition her to outpatient management, we will continue to monitor and treat as needed. #[id number] [facility]
[2019-08-23] MEDS ORDERED: SODIUM CHL 0.9% 50ML MIN-BAG+ 50 ML IVPB ONE (19:14)
[2019-08-23] MEDS ORDERED: cefTRIAXone SODIUM 1 GM VIAL ONE (19:15)
[2019-08-23] MEDS ORDERED: DEXTROSE 5% 100ML 0 ML IVPB ONE (19:50)
[2019-08-23] MEDS ORDERED: diltiaZEM DRIP 125 MG/25 ML VIAL IVPB ONE (19:51)
[2019-08-23] MEDS ORDERED: SODIUM CHLORIDE 0.9% 100ML 100 ML IVPB ONE (19:52)
[2019-08-23] MEDS ORDERED: diltiaZEM DRIP 125 MG in SODIUM CHLORIDE 0.9% 100ML 100 ML IVPB SCH (20:00)
[2019-08-23] MEDS: diphenhydrAMINE HCL 25 MG CAP PO SCH (20:37)
[2019-08-23] MEDS: ATORVASTATIN 20 MG TAB PO SCH (20:37)
[2019-08-23] MEDS: ENOXAPARIN SODIUM 30 MG/0.3 ML SYG SUBCU SCH (20:37)
[2019-08-24] MEDS: ACETAMINOPHEN W/COD #3 TAB 1 EA TAB PO PRN ×2 (05:23→18:21)
[2019-08-24] MEDS: ALBUTEROL SULFATE 2.5 MG/3 ML VIAL NEB SCH ×3 (05:42→13:14)
[2019-08-24] MEDS: INSULIN LISPRO 100 UNITS/ML PEN SUBCU SCH ×4 (07:20→21:01)
[2019-08-24] MEDS ORDERED: diltiaZEM HCL TAB 30 MG TAB PO ONE (08:30)
[2019-08-24] MEDS ORDERED: diltiaZEM HCL TAB 30 MG TAB PO SCH ×2 (08:30→12:30)
[2019-08-24] MEDS ORDERED: diltiaZEM HCL TAB 30 MG TAB ONE (08:34)
[2019-08-24] MEDS: GEMFIBROZIL 600 MG TAB PO SCH ×2 (08:37→20:17)
[2019-08-24] MEDS: GABAPENTIN 100 MG CAP PO SCH ×3 (08:37→20:17)
[2019-08-24] MEDS: amLODIPine BESYLATE 5 MG TAB PO SCH (08:37)
[2019-08-24] MEDS: SODIUM CHLORIDE 0.9% (FLUSH) 10 ML SYG IV SCH ×2 (08:37→20:17)
[2019-08-24] MEDS: ASPIRIN (ENTERIC COATED) 81 MG TAB PO SCH (08:37)
[2019-08-24] MEDS: SILVER SULFADIAZINE 1 % 25 GM TUBE TOP SCH ×2 (08:38→21:03)
[2019-08-24] MEDS ORDERED: SODIUM CHLORIDE 0.9% (FLUSH) 10 ML SYG IV ONE (10:16)
[2019-08-24] MEDS: HYDROcodone 5MG/APAP 325MG 1 EA TAB PO PRN (11:10)
[2019-08-24] MEDS ORDERED: METOPROLOL SUCCINATE XL 25 MG TAB PO ONE (12:47)
[2019-08-24] MEDS: METOPROLOL TARTRATE 25 MG TAB PO SCH ×2 (13:32→17:23)
--- NOTE | 2019-08-24 15:14 | PN ---
SUPERVISING PHYSICIAN: Steven Washington MD DATE: SUBJECTIVE: The patient went into atrial fibrillation last night. She was given Cardizem and did well with better control and stayed on Cardizem drip overnight and this morning converted to normal sinus rhythm. She has no complaints of shortness of breath, chest pains or active palpitations. She does note that she is now having some pain in her extremities;related to the areas on her feet but it is controlled by oral medications. She remains afebrile. OBJECTIVE: VITAL SIGNS: Hear rate last night was 133 prior to Cardizem drip. Blood pressure 151/92, after Cardizem drip and 15 IV Cardizem and converting to normal sinus rhythm this rhythm, heart rate is 52, blood pressure 146/73, respirations 20, oxygen saturation 97% on room air. GENERAL: The patient is resting comfortably, appears to be in no acute distress, she is alert. CHEST: Clear to auscultation. HEART: Regular rate and rhythm showing a sinus rhythm on the monitor. ABDOMEN: Soft, nontender. Positive bowel sounds. EXTREMITIES: No cyanosis, clubbing or edema but again, the bilateral feet with balls of the foot and great toe show areas of blistering with some ecchymosis. The blisters are contained and unopened. At this point, there are no signs of infection or cellulitis. NEUROLOGIC: Alert and oriented times three. LABORATORY: Potassium is low this morning at 5.2, chloride 112, BUN 19, creatinine 1.44 which is actually an improvement from initial of 2.79. Blood sugars are still elevated but showing to be stable, no more hypoglycemic events, ranging from 155 to 229. T3 this morning was 32.2, TSH normal at 5.43 but free T4 index was low at 0.18, a little low, T4 of 5.65. MICROBIOLOGY: Urine culture pending. Blood cultures negative at 24 hours. RADIOLOGY: No radiographic studies this morning. EKG last night showed tachycardia at 133, after Cardizem it did show Afib this morning and is now in sinus rhythm with no ST or T-wave changes indicating ischemia or acute injury pattern. ASSESSMENT: 1. Acute dehydration secondary to nausea and vomiting with poor oral intake, having recently been on a 10-day course of Bactrim. 2. Acute kidney injury prerenal azotemia and some associated hyperkalemia, secondary to #1 exacerbated by recent medication regimen to include Bactrim as well as her home medications wit lisinopril, Mobic and metformin, showing to be returning to baseline levels. 3. Metabolic acidosis secondary to #2, resolving with fluids with a questionable urinary tract infection with urine cultures currently pending. 4. Electrolyte imbalance with hyperkalemia showing to be stable. 5. Diabetes mellitus, type 2, with hypoglycemic episodes prior to admission, now showing to be stable, likely due to poor medical compliance with medication and insulin and poor oral intake. 6. Partial thickness first degree mckee to the bilateral lower feet. No complicating factors other than the patient has a history of diabetic neuropathy and recent episode of hypoglycemia. 7. Anemia, normocytic/normochromic showing to be stable with no evidence of acute blood loss. 8. Urinary tract infection with cultures pending. 9. Hypertension, poorly controlled. 10. History of chronic back pain. PLAN: She has been transitioned from a Cardizem drip overnight to beta fabiola as she was already on amlodipine. Her EKG this morning did show a sinus rhythm. She has no history of atrial fibrillation, but given her past history of no atrial fibrillation and converting back to normal sinus rhythm on Cardizem, rather than add a Cardizem we will go ahead and try a beta fabiola with metoprolol 25 mg b.i.d.. Her kidney function seems to be improving back to baseline levels. Again, I think this is related to her recent antibiotic courage with Bactrim on 10-day. We have an evaluation with physical therapy in the morning and will need to closely monitor her blisters and mckee on her feet. At this point, they remain closed. They did order some Silvadene but we are not utilizing this as there is no active wounds to utilize on and again, they do appear to be stable with no signs of infection. I did hold her metformin, Mobic and lisinopril given her kidney function. We will need to resume those tomorrow in anticipation of hopefully discharge either later tomorrow or Sunday. We will see how she does with metoprolol tonight and certainly if she stays stable, will go home on new prescription and followup with her primary care physician in [place]. We will go ahead and do additional BMP in the morning. She remains on antibiotic coverage awaiting culture results and hopefully will be able to transition her to outpatient management in the next 24 to 48 hours. Until the, we will continue to monitor and treat as needed. #[id number] [facility]
[2019-08-24] MEDS ORDERED: SODIUM CHL 0.9% 50ML MIN-BAG+ 50 ML IVPB ONE (19:05)
[2019-08-24] MEDS ORDERED: cefTRIAXone SODIUM 1 GM VIAL ONE (19:06)
[2019-08-24] MEDS: ENOXAPARIN SODIUM 30 MG/0.3 ML SYG SUBCU SCH (20:16)
[2019-08-24] MEDS: diphenhydrAMINE HCL 25 MG CAP PO SCH (20:17)
[2019-08-24] MEDS: ATORVASTATIN 20 MG TAB PO SCH (20:17)
[2019-08-24] MEDS: cefTRIAXone SODIUM 1 GM in SODIUM CHL 0.9% 50ML MIN-BAG+ 50 ML IVPB SCH (23:57)
[2019-08-24] MEDS: IV SET AND CAP CHANGE INJ INJ SCH (23:58)
[2019-08-25] MEDS: INSULIN LISPRO 100 UNITS/ML PEN SUBCU SCH ×4 (07:38→21:01)
[2019-08-25] MEDS: ACETAMINOPHEN W/COD #3 TAB 1 EA TAB PO PRN (07:45)
[2019-08-25] MEDS: GEMFIBROZIL 600 MG TAB PO SCH ×2 (07:45→20:19)
[2019-08-25] MEDS: ASPIRIN (ENTERIC COATED) 81 MG TAB PO SCH (07:45)
[2019-08-25] MEDS: amLODIPine BESYLATE 5 MG TAB PO SCH (07:45)
[2019-08-25] MEDS: SILVER SULFADIAZINE 1 % 25 GM TUBE TOP SCH ×3 (07:46→20:21)
[2019-08-25] MEDS: GABAPENTIN 100 MG CAP PO SCH ×3 (07:46→20:20)
[2019-08-25] MEDS: METOPROLOL TARTRATE 25 MG TAB PO SCH ×2 (07:46→17:03)
[2019-08-25] MEDS: SODIUM CHLORIDE 0.9% (FLUSH) 10 ML SYG IV SCH ×2 (07:46→20:20)
[2019-08-25] MEDS ORDERED: MAGNESIUM HYDROXIDE 30 ML UD PO PRN (09:23)
[2019-08-25] MEDS: HYDROcodone 5MG/APAP 325MG 1 EA TAB PO PRN ×2 (09:25→18:45)
[2019-08-25] MEDS: LISINOPRIL 10 MG TAB PO SCH ×3 (10:40→10:43)
[2019-08-25] MEDS ORDERED: LISINOPRIL 10 MG TAB ONE (10:42)
--- NOTE | 2019-08-25 13:18 | PN ---
SUPERVISING PHYSICIAN: Kerwin Zamorano MD DATE: 08/25/19 SUBJECTIVE: The patient remains in normal sinus rhythm. She had been tolerating metoprolol without any complications. She has no shortness of breath or palpitations. She has been afebrile. She notes the pain in her feet is a little bit less today. She is going to have a physical therapy evaluation and I discussed restarting her metformin and lisinopril. OBJECTIVE: VITAL SIGNS: Temperature 97. Pulse 80. Blood pressure 162/68. Respirations 16. Saturation 97% on room air. GENERAL: The patient is resting comfortably, appears to be in no acute distress. CHEST: Clear to auscultation. HEART: Regular rate and rhythm showing a sinus rhythm on the monitor. ABDOMEN: Soft, nontender. Positive bowel sounds. EXTREMITIES: No cyanosis, clubbing or edema but again, the bilateral feet with balls of the foot and great toe show areas of blistering with some ecchymosis. The blisters are contained and unopened. At this point, there are no signs of infection or cellulitis. NEUROLOGIC: Alert and oriented times three. LABORATORY: Creatinine is down to 1.39. Potassium is a little elevated at 5.1, otherwise electrolytes are within normal limits. Blood sugar ranges between 165 to 256 with calcium 8.8. ASSESSMENT: 1. Acute dehydration secondary to nausea and vomiting, exacerbated by a 10-day course of Bactrim, now resolved. 2. Acute kidney injury secondary to prerenal azotemia with some dehydration, associated hyperkalemia, probably due to recent Bactrim administration, exacerbated by lisinopril, Mobic and metformin, now showing to response to treatment and returning to baseline. 3. Metabolic acidosis secondary to #2, resolved with fluids. 4. Urinary tract infection with urine cultures pending. 5. Electrolyte imbalance with persistent hyperkalemia, but showing to be stable. 6. Diabetes mellitus, type 2, with hypoglycemic episodes prior to admission, now stable, likely due to poor medical compliance with medication and insulin and poor oral intake. 7. Partial thickness first degree mckee to the bilateral lower feet. No complicating factors other than the patient has a history of diabetic neuropathy and recent episode of hypoglycemia. 8. Anemia, normocytic/normochromic showing to be stable with no evidence of acute blood loss. 9. Urinary tract infection with cultures pending. 10. Hypertension, poorly controlled. 11. History of chronic back pain. PLAN: The patient remains on metoprolol with good control of her rate. She continues to be on antibiotic coverage for urinary tract infection. She has a physical therapy evaluation pending today. I anticipate she will probably discharge tomorrow, but she will need home health to assist with the blisters on the feet. Right now, they are continuing to be closed and show no obvious signs of infection. I am going to resume her metformin and lisinopril, but hold her Mobic and ensure that her kidney function stays stable and make sure we have a blood sugar also stable. She will need to go home probably with Mobic being held as well as I would recommend she probably hold her insulin until she follows up with her primary care physician because she is apparently not very knowledgeable in regards to administration of insulin and blood sugar monitoring. I did discuss this plan of care with the patient and she understands the insulin is risky at this point if she is not able to understand she needs to not take her insulin when she is low or at least eat a snack and needs to followup with her primary care physician for further continuance of the insulin. We will repeat another BMP in the morning to ensure her creatinine is stable or at least improving with new medications we re-initiated. Again, hopefully we will be able to discharge tomorrow. She is not sure as to what home health agency yet, but we are working on that and hopefully this will be in place by discharge. Until then, we will continue to monitor and treat as needed. [facility][id number]
[2019-08-25] MEDS ORDERED: metFORMIN HCL 500 MG TAB ONE (15:55)
[2019-08-25] MEDS: metFORMIN HCL 500 MG TAB PO SCH (17:03)
[2019-08-25] MEDS ORDERED: SODIUM CHL 0.9% 50ML MIN-BAG+ 50 ML IVPB ONE (19:10)
[2019-08-25] MEDS ORDERED: cefTRIAXone SODIUM 1 GM VIAL ONE (19:11)
[2019-08-25] MEDS: ENOXAPARIN SODIUM 30 MG/0.3 ML SYG SUBCU SCH (20:19)
[2019-08-25] MEDS: diphenhydrAMINE HCL 25 MG CAP PO SCH (20:20)
[2019-08-25] MEDS: ATORVASTATIN 20 MG TAB PO SCH (20:20)
[2019-08-26] MEDS: cefTRIAXone SODIUM 1 GM in SODIUM CHL 0.9% 50ML MIN-BAG+ 50 ML IVPB SCH (00:26)
[2019-08-26] MEDS ORDERED: metFORMIN HCL 500 MG TAB ONE (07:39)
[2019-08-26] MEDS ORDERED: LISINOPRIL 10 MG TAB ONE (07:39)
[2019-08-26] MEDS: INSULIN LISPRO 100 UNITS/ML PEN SUBCU SCH (07:58)
[2019-08-26] MEDS: ACETAMINOPHEN W/COD #3 TAB 1 EA TAB PO PRN ×2 (08:06→14:26)
[2019-08-26] MEDS: metFORMIN HCL 500 MG TAB PO SCH (08:07)
[2019-08-26] MEDS: GEMFIBROZIL 600 MG TAB PO SCH (08:07)
[2019-08-26] MEDS: ASPIRIN (ENTERIC COATED) 81 MG TAB PO SCH (08:07)
[2019-08-26] MEDS: GABAPENTIN 100 MG CAP PO SCH ×2 (08:07→14:26)
[2019-08-26] MEDS: LISINOPRIL 10 MG TAB PO SCH (08:07)
[2019-08-26] MEDS: METOPROLOL TARTRATE 25 MG TAB PO SCH (08:08)
[2019-08-26 09:39] VITALS: BP 164/69; TEMP 98.6
[2019-08-26 10:18] VITALS: O2SAT 95
--- NOTE | 2019-08-26 13:25 | DS ---
SUPERVISING PHYSICIAN: Kerwin Zamorano MD DISCHARGE DIAGNOSIS: 1. Acute dehydration secondary to nausea and vomiting, exacerbated by a 10-day course of Bactrim, now resolved. 2. Acute kidney injury secondary to prerenal azotemia with some dehydration, associated hyperkalemia, probably due to recent Bactrim administration, exacerbated by lisinopril, Mobic and metformin, now showing to response to treatment and returning to baseline. 3. Metabolic acidosis secondary to #2, resolved with fluids. 4. Urinary tract infection with urine cultures pending. 5. Electrolyte imbalance with persistent hyperkalemia, but showing to be stable. 6. Diabetes mellitus, type 2, with hypoglycemic episodes prior to admission, now stable, likely due to poor medical compliance with medication and insulin and poor oral intake. 7. Partial thickness first degree mckee to the bilateral lower feet. No complicating factors other than the patient has a history of diabetic neuropathy and recent episode of hypoglycemia. 8. Anemia, normocytic/normochromic showing to be stable with no evidence of acute blood loss. 9. Urinary tract infection with cultures pending. 10. Hypertension, poorly controlled. 11. History of chronic back pain. HISTORY OF PRESENT ILLNESS: This is is a 79-year-old female patient that was admitted to the Emergency Room via EMS because of low blood sugar. Her family said that they had been trying to get in touch with her, but were unable to and they went her home and found her confused. They called EMS and found the patient was significantly hypoglycemic with meter reading very low. She was given soda and crackers, which did improve her mental status. When she got to the Emergency Room, she was basically at her baseline mental status without any significant complaints except some discomfort in her feet. She felt they were somewhat burned due to sitting in front of a heater. She did stay that over the previous few days prior to her admission that she had several low blood sugars and did take her insulin and had not been eating or drinking very well. There were no complaints of abdominal pain or diarrhea on admission. Her blood sugar on the morning prior to her admission to the ER was 56. She did take her insulin, but did not eat breakfast. In the ER, her white count was 10,200 with hemoglobin 10.5, hematocrit 32. Potassium was high at 5.7 with anion gap of 19.7 and lactic acid 4.1 with BUN 45, creatinine 2.79. Calcium 9.6. Blood gases in the Emergency Room did show she was acidotic with pH 7.25, pCO2 36, pO2 83, bicarb 16. O2 saturation was 95.4%. She was given fluids. She was also found to have two blistering areas on each of her great toes. She was admitted to the hospital. HOSPITAL COURSE: The patient was gently hydrated. Her kidney functions were closely monitored. She was actually initially given some D5W with 75 mEq of sodium bicarb. BMPs were closely monitored. Her metformin, lisinopril and Mobic were held. She was given pain management as well as antiemetics and wound care was done to those mckee on the bottom of her feet. Her lactic acid was also monitored also closely and she was also given Rocephin for urinary tract infection. Lovenox was started for DVT prophylaxis and she was also put on sliding scale insulin per protocol. Her blood pressures mostly stabilized and did continue complaints of pain in her feet. Wound care was continued. Physical therapy was consulted for evaluation. She did go into atrial fibrillation and was given Cardizem and did well and converted to normal sinus rhythm. She was also started on metoprolol. Her EKG showed sinus rhythm. She does have a history of atrial fibrillation and she is on a calcium channel fabiola, so the beta fabiola was started. Her kidney function improved. She did decide that on discharge she would go with [facility]. Her metformin and lisinopril were also resumed and her Mobic will continue to be held to ensure her kidney function stays stable. She will need to followup with her primary care physician to resume her insulin as well as any NSAIDs. She will be discharged today in stable condition. LABORATORY: WBCs on admission were 10.1 and have stabilized now to 4.6. Hemoglobin and hematocrit initially were 10.5 and 32 and today are 8.7 and 27.1. Blood sugars have run between 88 and 256. Electrolytes are basically within normal limits. Potassium is slightly elevated today to 5.2, but her creatinine is normal at 1.2. Her preliminary blood cultures show no growth after 4 days. Her urine culture continues to be pending. All other labs and films have been reviewed via the EMR. DISCHARGE PLAN: The patient will be discharged home in stable condition. She is to resume her previous diet and increase her activity as tolerated. She will have [facility] as well as her physical therapy. She will have also wound care to her feet. She is to followup with [facility], in 1 to 2 weeks after discharge. Her Mobic has been discontinued as well as her NPH insulin. She is to avoid NSAIDs. She will also have cefdinir antibiotic for her urinary tract infection. I have also given her Silvadene cream for her wounds. She is to return to the hospital or followup with her primary care physician for any problems or complications. DISCHARGE MEDICATIONS: 1. Atorvastatin. 2. Metformin. 3. Aspirin. 4. Amlodipine. 5. Lopid. 6. Diphenhydramine. 7. Lisinopril. 8. Acetaminophen with codeine. 9. Gabapentin. 10. Methocarbamol. 11. Dulcolax. 12. Cefdinir. 13. Silvadene. #[id number] [facility]
== END 2019-08-26 15:30 | disposition home health service (06) | DRG 683 ==
LOC: ER 16:30 → OBSVTOIN 23:19 → MS 23:19
PROVIDERS: ADMIT Nurse Practitioner Family; ATTEND Nurse Practitioner Acute Care
DX: N17.9 Acute kidney failure, unspecified (principal); E87.2 Acidosis; N39.0 Urinary tract infection, site not specified; E86.0 Dehydration; T36.8X5A Adverse effect of other systemic antibiotics, initial encounter; T46.4X5A Adverse effect of angiotensin-converting-enzyme inhibitors, initial encounter; T39.395A Adverse effect of other nonsteroidal anti-inflammatory drugs [NSAID], initial encounter; T38.3X5A Adverse effect of insulin and oral hypoglycemic [antidiabetic] drugs, initial encounter; E87.5 Hyperkalemia; E87.6 Hypokalemia; E11.649 Type 2 diabetes mellitus with hypoglycemia without coma; E11.40 Type 2 diabetes mellitus with diabetic neuropathy, unspecified; D64.9 Anemia, unspecified; I10 Essential (primary) hypertension; G89.29 Other chronic pain; M54.9 Dorsalgia, unspecified; T25.132A Burn of first degree of left toe(s) (nail), initial encounter; T25.131A Burn of first degree of right toe(s) (nail), initial encounter; W29.2XXA Contact with other powered household machinery, initial encounter; I48.91 Unspecified atrial fibrillation; E78.5 Hyperlipidemia, unspecified; Y92.009 Unspecified place in unspecified non-institutional (private) residence as the place of occurrence of the external cause; Z91.14 Patient's other noncompliance with medication regimen; Z79.82 Long term (current) use of aspirin; Z79.1 Long term (current) use of non-steroidal anti-inflammatories (NSAID); Z91.048 Other nonmedicinal substance allergy status; Z79.899 Other long term (current) drug therapy; Z87.891 Personal history of nicotine dependence

== ENCOUNTER → 2019-09-04 | Outpatient (CLI) | payer MEDICARE | DX: R50.9 Fever, unspecified (principal) ==

== ENCOUNTER 2019-11-29 02:51 | Emergency (ER) | payer MEDICARE ==
[2019-11-29] MEDS ORDERED: SODIUM CHLORIDE 0.9% 500ML 500 ML IVS ONE (03:09)
[2019-11-29] MEDS ORDERED: SODIUM CHLORIDE 0.9% 1000ML 1,000 ML ONE (03:09)
[2019-11-29] MEDS ORDERED: fentaNYL CITRATE INJ 50 MCG/ML 2 ML AMP ONE (03:12)
[2019-11-29] MEDS ORDERED: LIDOCAINE 1% W/ EPINEPHRINE 20 ML VIAL INJ ONE (03:12)
--- NOTE | 2019-11-29 03:16 | ED.PDOC ---
History of Present Illness - General Chief Complaint: Skin/Abrasion/Tear Stated Complaint: Multiple areas of bleeding Time Seen by Provider: 11/29/19 03:01 Source: patient, RN notes reviewed, Vital Signs reviewed, EMS notes reviewed, EMS, senior living records Exam Limitations: no limitations - History of Present Illness Initial Comments: This is a 79-year-old female sent from [facility] for multiple areas of active bleeding that began tonight. Patient was recently admitted at [facility] and had bilateral toe amputations 5 days ago. Patient reportedly got a shot of Lovenox this evening. Patient has had bleeding from around her PICC line as well as from the Lovenox injection site since the medication was given. No blood in stool, no blood in urine. Patient denies any headaches. She does have a history of anemia and had to be transfused while she was in the hospital Earlier this week She denies any fever, cough, shortness of breath. She denies any trauma/injury. In addition to Lovenox, she takes aspirin and Plavix according to senior living records. Allergies/Adverse Reactions: Allergies Iodine Allergy (Unknown, Verified 08/12/18 09:25) Home Medications: Ambulatory Orders Atorvastatin Calcium [Lipitor] 20 mg PO DAILY 05/05/13 Aspirin [Aspirin Adult Low Dose] 81 mg PO DAILY 01/28/15 Metformin HCl [Glucophage] 1,000 mg PO BID 01/28/15 Gemfibrozil [Lopid] 600 mg PO BID 07/22/15 amLODIPine BESYLATE [Norvasc] 10 mg PO DAILY 07/22/15 Acetaminophen W/ Codeine [Tylenol W/ CODEINE #3] 1 ea PO QID PRN 08/11/18 Bisacodyl [Dulcolax] 5 mg PO BID PRN 08/11/18 Gabapentin 100 mg PO TID 08/11/18 Lisinopril 20 mg PO DAILY 08/11/18 Methocarbamol 750 mg PO QID PRN 08/11/18 Metoprolol Succinate [Toprol Xl] 25 mg PO DAILY #30 tab.er.24 08/26/19 SILVER SULFADIAZINE 1 % 25gm [Silvadene Cream 25gm] 1 applic TOP BID #8 oz 08/26/19 Cephalexin Monohydrate [Keflex] 500 mg PO TID #24 cap 08/27/19 Cefdinir [Omnicef] 300 mg PO BID #14 cap 09/27/19 Insulin Detemir [Levemir] 10 unit SUBCU BEDTIME #1 pen 09/27/19 Review of Systems - Review of Systems Constitutional: Denies: chills, fever, weakness EENTM: Denies: ear pain, throat pain, mouth pain Respiratory: States: short of breath. Denies: cough, orthopnea, stridor, wheezing Cardiology: Denies: chest pain, edema, palpitations, syncope Gastrointestinal/Abdominal: Denies: constipation, diarrhea, nausea, vomiting, other - No blood in stool Genitourinary: Denies: dysuria, frequency, hematuria Musculoskeletal: Denies: back pain, joint pain, joint swelling, muscle pain, muscle stiffness, neck pain Neurological: Denies: headache, numbness, paresthesia, pre-existing deficit, tingling, tremors Endocrine: States: no symptoms reported Hematologic/Lymphatic: States: easy bleeding. Denies: blood clots Past Medical History (General) - Patient Medical History Hx Seizures: No Hx Stroke: No Hx Dementia: No Hx Asthma: No Hx of COPD: No Hx Cardiac Disorders: Yes - hypercholesterolemia Hx Congestive Heart Failure: No Hx Pacemaker: No Hx Hypertension: Yes Hx Thyroid Disease: No Hx Diabetes: Yes Hx Gastroesophageal Reflux: No Hx Renal Disease: No Hx Cancer: No Hx of HIV: No Hx Hepatitis C: No Hx MRSA: Yes - Vaccination History Hx Influenza Vaccination: Yes Hx Pneumococcal Vaccination: Yes - Social History Hx Tobacco Use: No Hx Alcohol Use: No Hx Substance Use: No Hx Substance Use Treatment: No Hx Depression: No Hx Physical Abuse: No Hx Emotional Abuse: No Family Medical History - Family History Mother Family History: Unknown Hx Family Cancer: Yes Physical Exam - Physical Exam General Appearance: Alert, Comfortable Eye Exam: bilateral normal Ears, Nose, Throat: normal ENT inspection, normal pharynx, other - No blood in nares, no oropharyngeal blood Neck: full range of motion, supple, normal inspection Respiratory: chest non-tender, lungs clear, normal breath sounds, no respiratory distress, no accessory muscle use Cardiovascular/Chest: normal peripheral pulses, regular rate, rhythm, no edema, no gallop, no JVD, no murmur Peripheral Pulses: dorsalis pedis,right: 1+, dorsalis pedis,left: 1+ Gastrointestinal/Abdominal: soft, tenderness - Right lower quadrant mildly tender. There is a puncture wound to the left lower quadrant, less than 1 mm in diameter. It is actively bleeding, nonpulsatile Back Exam: normal inspection, no CVA tenderness, no vertebral tenderness Extremity: non-tender, other - Multiple healing amputation sites to bilateral toes. There is no active bleeding from the amputation sites. She has a PICC line in place in the right upper extremity with blood underneath the PICC line dressing. PICC line flows and draws well. Neurologic: no motor/sensory deficits, alert, normal mood/affect, other - Pleasantly demented, oriented to person and place, not time Skin Exam: normal color, rash - Nonblanching, petechial rash to the dorsal aspect of both feet, right greater than left Progress - Progress Progress: 11/29/19 03:51 RN spoke with senior living. Patient reportedly had toe amputations yesterday, not 5 days ago 11/29/19 05:38 Recheck. Discussed plan for transfer. Patient agrees. 11/29/19 05:[address] Puente at [facility]. Will accept his transfer. DDX: DIC, coagulopathy, ITP, TTP MDM: Patient presenting with bleeding from PICC line, difficult to control bleeding from Lovenox puncture wound to the abdominal wall. She had surgery yesterday for bilateral toe amputations. She is afebrile, but has petechial rash to the dorsal aspect of both feet. She has prolonged PT, elevated INR, prolonged PTT, as well as markedly elevated d-dimer. IS DIC score is 5 per my calculation, consistent with DIC. She does have a suspected UTI, this may be a trigger as well as her recent surgery. Hemoglobin is 8.1. Fibrinogen level is elevated at this time, platelet count at this time is normal. Plan is to transfer back to [facility] for continuity of care and management of possible DIC. Kendrick Romeo DO [facility] #[id number] - Results/Orders Results/Orders: EXAM: CT Abdomen and Pelvis Without Intravenous Contrast CLINICAL HISTORY: The patient is 79 years old and is Female; RLQ pain TECHNIQUE: Axial computed tomography images of the abdomen and pelvis without intravenous contrast. Sagittal and coronal reformatted images were created and reviewed. This CT exam was performed using one or more of the following dose reduction techniques: automated exposure control, adjustment of the mA and/or kV according to patient size, and/or use of iterative reconstruction technique. COMPARISON: No relevant prior studies available. FINDINGS: LUNG BASES: Unremarkable. No mass. No consolidation. ABDOMEN: LIVER: The liver is enlarged. GALLBLADDER AND BILE DUCTS: The gallbladder is distended. No calcified gallstones are seen. PANCREAS: Unremarkable. No ductal dilation. SPLEEN: The spleen is prominent. ADRENALS: Hyperplasia of the adrenal glands is noted. KIDNEYS AND URETERS: Nonspecific perinephric stranding is present, specifically on the right. Suggestion of areas of parenchymal calcification within the right kidney are noted. There is no obstructing renal or ureteral calculus. STOMACH AND BOWEL: Stomach is decompressed. The small bowel is also decompressed. A moderate amount stool is present throughout the colon. Scattered colonic diverticula are noted without surrounding inflammation. There is no bowel obstruction. PELVIS: APPENDIX: No findings to suggest acute appendicitis. BLADDER: The bladder is well distended. No stones. REPRODUCTIVE: Unremarkable as visualized. ABDOMEN and PELVIS: INTRAPERITONEAL SPACE: Trace amount of free fluid is present within the right upper quadrant. No free air. BONES/JOINTS: The bones are osteopenic with mild degenerative change. SOFT TISSUES: Fat- containing umbilical hernia is present. Mild diffuse body wall edema is present. VASCULATURE: Atherosclerosis of the vasculature is present. No abdominal aortic aneurysm. LYMPH NODES: Unremarkable. No enlarged lymph nodes. IMPRESSION: 1. Distended gallbladder. No calcified gallstones. If there is clinical concern for acute gallbladder pathology, findings could be further evaluated with ultrasound or HIDA scan. 2. Moderate stool burden. Colonic diverticulosis. CLINICAL INDICATION: Shortness of breath, widespread bleeding COMPARISON: 09/24/2019 FINDINGS: Right-sided PICC line tip is at the cavoatrial junction. Vascular calcification is noted in the aorta. Calcified mitral valve annulus is noted. The lungs are clear. Cardiac, hilar and mediastinal contours are within normal limits. Pulmonary vascularity is within normal limits. IMPRESSION: No acute disease. Electronically signed by: Nas Gonzales 11/29/2019 4:46 AM CDT Laboratory Tests 11/29/19 11/29/19 11/29/19 03:35 03:35 03:35 WBC 3.5 L RBC 2.76 L Hgb 8.1 L Hct 24.4 L MCV 88.3 MCH 29.4 MCHC 33.3 RDW 15.5 H Plt Count 221 MPV 8.8 Absolute Neuts (auto) 2.40 Absolute Lymphs (auto) 0.70 L Absolute Monos (auto) 0.30 Absolute Eos (auto) 0.10 Absolute Basos (auto) 0.00 Neutrophils % 67.8 Lymphocytes % 20.2 Monocytes % 8.0 Eosinophils % 3.3 Basophils % 0.7 PT 24.4 H INR 2.46 H PTT (SP) 41.2 H Fibrinogen 484 H Fibrin Degrad Products Cancelled D-Dimer, Quantitative Sodium 137 Potassium 3.3 L Chloride 109 Carbon Dioxide 22 Anion Gap 9.3 L BUN 12 Creatinine 0.93 BUN/Creatinine Ratio 12.9 Random Glucose 90 Serum Osmolality 273.1 L Lactic Acid Calcium 8.2 L Total Bilirubin 0.5 AST 17 ALT < 8 L Alkaline Phosphatase 116 Troponin I Serum Total Protein 5.5 L Albumin 2.6 L Globulin 2.9 Albumin/Globulin Ratio 0.9 L Patient ABO/Rh Antibody Screen 11/29/19 11/29/19 11/29/19 03:35 03:35 03:35 WBC RBC Hgb Hct MCV MCH MCHC RDW Plt Count MPV Absolute Neuts (auto) Absolute Lymphs (auto) Absolute Monos (auto) Absolute Eos (auto) Absolute Basos (auto) Neutrophils % Lymphocytes % Monocytes % Eosinophils % Basophils % PT INR PTT (SP) Fibrinogen Fibrin Degrad Products D-Dimer, Quantitative Sodium Potassium Chloride Carbon Dioxide Anion Gap BUN Creatinine BUN/Creatinine Ratio Random Glucose Serum Osmolality Lactic Acid 0.8 Calcium Total Bilirubin AST ALT Alkaline Phosphatase Troponin I 0.03 Serum Total Protein Albumin Globulin Albumin/Globulin Ratio Patient ABO/Rh A POSITIVE Antibody Screen Negative 11/29/19 03:35 WBC RBC Hgb Hct MCV MCH MCHC RDW Plt Count MPV Absolute Neuts (auto) Absolute Lymphs (auto) Absolute Monos (auto) Absolute Eos (auto) Absolute Basos (auto) Neutrophils % Lymphocytes % Monocytes % Eosinophils % Basophils % PT INR PTT (SP) Fibrinogen Fibrin Degrad Products D-Dimer, Quantitative 2450 H* Sodium Potassium Chloride Carbon Dioxide Anion Gap BUN Creatinine BUN/Creatinine Ratio Random Glucose Serum Osmolality Lactic Acid Calcium Total Bilirubin AST ALT Alkaline Phosphatase Troponin I Serum Total Protein Albumin Globulin Albumin/Globulin Ratio Patient ABO/Rh Antibody Screen Procedures - Laceration/Wound Repair Left Lower Abdomen Wound Length (cm): 0.1 Wound's Depth, Shape: superficial Wound Explored: clean Betadine Prep?: No Anesthesia: Lidocaine w/ Epi Volume Anesthetic (cc's): 5 Wound Repaired With: sutures Suture Size/Type: 4:0, prolene Number of Sutures: 1 - Puncture wound to the abdomen with active bleeding, single [id number] suture placed with 4-0 Prolene, good hemostasis Layer Closure?: No Sterile Dressing Applied?: No Splint Applied?: No Sling Applied?: No Departure - Departure Clinical Impression: Petechial rash, Disseminated intravascular coagulopathy, Acute cystitis without hematuria, Hemorrhage from wound S/P amputation of lesser toe Qualifiers: Laterality: unspecified laterality Qualified Code(s): Z89.429 - Acquired absence of other toe(s), unspecified side Time of Disposition: 05:54 Disposition: Transfer to Hospital Condition: Fair Departure Forms: ED Discharge - Pt. Copy, Patient Portal Self Enrollment Instructions: DI for Abrasion Referrals: [facility] [Primary Care Provider] - 1-2 Weeks Home Medications: Ambulatory Orders Atorvastatin Calcium [Lipitor] 20 mg PO DAILY 05/05/13 Aspirin [Aspirin Adult Low Dose] 81 mg PO DAILY 01/28/15 Metformin HCl [Glucophage] 1,000 mg PO BID 01/28/15 Gemfibrozil [Lopid] 600 mg PO BID 07/22/15 amLODIPine BESYLATE [Norvasc] 10 mg PO DAILY 07/22/15 Acetaminophen W/ Codeine [Tylenol W/ CODEINE #3] 1 ea PO QID PRN 08/11/18 Bisacodyl [Dulcolax] 5 mg PO BID PRN 08/11/18 Gabapentin 100 mg PO TID 08/11/18 Lisinopril 20 mg PO DAILY 08/11/18 Methocarbamol 750 mg PO QID PRN 08/11/18 Metoprolol Succinate [Toprol Xl] 25 mg PO DAILY #30 tab.er.24 08/26/19 SILVER SULFADIAZINE 1 % 25gm [Silvadene Cream 25gm] 1 applic TOP BID #8 oz 08/26/19 Cephalexin Monohydrate [Keflex] 500 mg PO TID #24 cap 08/27/19 Cefdinir [Omnicef] 300 mg PO BID #14 cap 09/27/19 Insulin Detemir [Levemir] 10 unit SUBCU BEDTIME #1 pen 09/27/19 Transfer to Outside Facility - Transfer Information Decision to Transfer Date: 11/29/19 Decision to Transfer Time: 05:55 Reason for Transfer: specialized care not available Accepting Provider:: Dr Puente Accepting Facility: [facility]
[2019-11-29] MEDS ORDERED: fentaNYL CITRATE INJ 50 MCG/ML 2 ML AMP IV ONE (03:25)
[2019-11-29] MEDS ORDERED: MEROPENEM 1 GM in SODIUM CHL 0.9% 50ML MIN-BAG+ 50 ML IVPB SCH (03:30)
--- NOTE | 2019-11-29 04:39 | CT ---
EXAM: CT Abdomen and Pelvis Without Intravenous Contrast CLINICAL HISTORY: The patient is 79 years old and is Female; RLQ pain TECHNIQUE: Axial computed tomography images of the abdomen and pelvis without intravenous contrast. Sagittal and coronal reformatted images were created and reviewed. This CT exam was performed using one or more of the following dose reduction techniques: automated exposure control, adjustment of the mA and/or kV according to patient size, and/or use of iterative reconstruction technique. COMPARISON: No relevant prior studies available. FINDINGS: LUNG BASES: Unremarkable. No mass. No consolidation. ABDOMEN: LIVER: The liver is enlarged. GALLBLADDER AND BILE DUCTS: The gallbladder is distended. No calcified gallstones are seen. PANCREAS: Unremarkable. No ductal dilation. SPLEEN: The spleen is prominent. ADRENALS: Hyperplasia of the adrenal glands is noted. KIDNEYS AND URETERS: Nonspecific perinephric stranding is present, specifically on the right. Suggestion of areas of parenchymal calcification within the right kidney are noted. There is no obstructing renal or ureteral calculus. STOMACH AND BOWEL: Stomach is decompressed. The small bowel is also decompressed. A moderate amount stool is present throughout the colon. Scattered colonic diverticula are noted without surrounding inflammation. There is no bowel obstruction. PELVIS: APPENDIX: No findings to suggest acute appendicitis. BLADDER: The bladder is well distended. No stones. REPRODUCTIVE: Unremarkable as visualized. ABDOMEN and PELVIS: INTRAPERITONEAL SPACE: Trace amount of free fluid is present within the right upper quadrant. No free air. BONES/JOINTS: The bones are osteopenic with mild degenerative change. SOFT TISSUES: Fat-containing umbilical hernia is present. Mild diffuse body wall edema is present. VASCULATURE: Atherosclerosis of the vasculature is present. No abdominal aortic aneurysm. LYMPH NODES: Unremarkable. No enlarged lymph nodes. IMPRESSION: 1. Distended gallbladder. No calcified gallstones. If there is clinical concern for acute gallbladder pathology, findings could be further evaluated with ultrasound or HIDA scan. 2. Moderate stool burden. Colonic diverticulosis. Electronically signed by: Radha Rodriguez MD 11/29/2019 4:37 AM CDT
--- NOTE | 2019-11-29 04:47 | RAD ---
CHEST 1 VIEW on 11/29/2019 CLINICAL INDICATION: Shortness of breath, widespread bleeding COMPARISON: 09/24/2019 FINDINGS: Right-sided PICC line tip is at the cavoatrial junction. Vascular calcification is noted in the aorta. Calcified mitral valve annulus is noted. The lungs are clear. Cardiac, hilar and mediastinal contours are within normal limits. Pulmonary vascularity is within normal limits. IMPRESSION: No acute disease. Electronically signed by: Nas Gonzales 11/29/2019 4:46 AM CDT
[2019-11-29] MEDS ORDERED: MORPHINE SULFATE INJ 10 MG/ML VIAL IV ONE (05:49)
[2019-11-29 07:08] VITALS: BP 154/87; TEMP 97.9; O2SAT 97
== END 2019-11-29 06:50 | disposition short-term general hospital (02) ==
LOC: ER 02:51
DX: N30.00 Acute cystitis without hematuria (principal); R23.3 Spontaneous ecchymoses; D65 Disseminated intravascular coagulation [defibrination syndrome]; Z89.429 Acquired absence of other toe(s), unspecified side; Z79.02 Long term (current) use of antithrombotics/antiplatelets; Z79.82 Long term (current) use of aspirin; Z79.899 Other long term (current) drug therapy
CPT/HCPCS: 71045; 74176; 80053; 83605; 84484; 85025; 85379; 85384; 85610; 85730; 86850; 86900; 86901; 87040; J2185; J2270; J3010; J7030; J7050

== ENCOUNTER 2019-11-29 21:51 | Observation (INO) | payer MEDICARE ==
[2019-11-29] MEDS ORDERED: VANCOMYCIN HCL INJ 1,000 MG in SODIUM CHLORIDE 0.9% 250ML 250 ML IVPB ONE (22:24)
[2019-11-30] MEDS ORDERED: ACETAMINOPHEN W/COD #3 TAB 1 EA TAB PO ONE (00:39)
[2019-11-30] MEDS ORDERED: diphenhydrAMINE HCL 25 MG CAP PO ONE (01:18)
[2019-11-30] MEDS ORDERED: predniSONE 20 MG TAB PO ONE (01:18)
[2019-11-30] MEDS ORDERED: PHYTONADIONE INJ 10 MG/ML AMP IM ONE (01:20)
--- NOTE | 2019-11-30 01:35 | ED.PDOC ---
History of Present Illness - General Chief Complaint: General Stated Complaint: right arm picc continue to bleed Time Seen by Provider: 11/29/19 22:11 Source: patient, EMS notes reviewed, prison records - History of Present Illness Initial Comments: The patient is a 79-year-old female presented to the emergency room from the prison secondary to bleeding around the PIC line in her right upper extremity. The patient had the PICC line placed this past week after she had several toes amputated secondary to infection and poor perfusion. Patient also apparently had stents placed in her bilateral femoral arteries within this past week. She was discharged to the prison yesterday it appears and was sent up here last night due to bleeding from the PICC line site as well as from the Lovenox injection site. The patient was sent to [facility] this morning for concern for DIC. Apparently she was evaluated there and was determined to not be in DIC but she was allowed to go off of the Lovenox. She was to continue the aspirin and the Plavix due to stenting. The patient is pale and weak. She does get short of breath fairly easily. No chest pain or pain ot her than at the amputation sites of her feet. The feet do not appear to be grossly infected. The patient was being placed on vancomycin prophylactically by her surgeon at 1 g daily until the of this month. The patient was sent back up here this evening secondary to mild continued oozing from the PICC line site. Her last dose of Lovenox was this morning. Timing/Duration: unsure Severity: mild Improving Factors: nothing Worsening Factors: nothing Associated Symptoms: shortness of breath - Mainly with activity Allergies/Adverse Reactions: Allergies Iodine Allergy (Unknown, Verified 08/12/18 09:25) Home Medications: Ambulatory Orders Atorvastatin Calcium [Lipitor] 20 mg PO DAILY 05/05/13 Aspirin [Aspirin Adult Low Dose] 81 mg PO DAILY 01/28/15 Gemfibrozil [Lopid] 600 mg PO BID 07/22/15 amLODIPine BESYLATE [Norvasc] 10 mg PO DAILY 07/22/15 Acetaminophen W/ Codeine [Tylenol W/ CODEINE #3] 1 ea PO Q4HR PRN 08/11/18 Bisacodyl [Dulcolax] 5 mg PO DAILY 08/11/18 Carvedilol [Coreg] 3.125 mg PO BID 11/29/19 Clopidogrel Bisulfate [Plavix] 75 mg PO QD 11/29/19 Acetaminophen [Tylenol] 650 mg PO Q6HR PRN 11/30/19 Alum & Mag Hydrox-Simethicone [Mylanta Maximum Strength 400-400-40 mg/5Ml] 2.5 ml PO Q6HR PRN 11/30/19 Famotidine 20 mg PO DAILY 11/30/19 Ferrous Sulfate [Fe Tabs] 325 mg PO DAILY 11/30/19 Glucagon Inj [(None)] 1 mg IM PRN 11/30/19 Insulin Aspart [Novolog Flexpen] 100 unit SC PRN 11/30/19 Insulin Detemir [Levemir] 16 unit SUBCU BEDTIME 11/30/19 Magnesium Hydroxide [Milk Of Magnesia] 30 ml PO DAILY PRN 11/30/19 Multiple Vitamins W/ Minerals [Multivitamin & Mineral] 1 tablet PO DAILY 11/30/19 Polyethylene Glycol 3350 [Miralax] 17 gm PO DAILY 11/30/19 Sennosides 8.6MG [Senokot] 2 ea PO BEDTIME 11/30/19 Simvastatin 40 mg PO BEDTIME 11/30/19 Vancomycin HCl 1 gm IV DAILY 11/30/19 Verapamil HCl [Verapamil HCl ER] 120 mg PO DAILY 11/30/19 Review of Systems - Review of Systems Constitutional: States: malaise, weakness - Generalized EENTM: States: no symptoms reported Respiratory: States: short of breath - With activity Cardiology: States: no symptoms reported Gastrointestinal/Abdominal: States: no symptoms reported Genitourinary: States: no symptoms reported Musculoskeletal: States: see HPI Skin: States: see HPI Neurological: States: no symptoms reported Endocrine: States: no symptoms reported All other Systems: No Change from Baseline Past Medical History (General) - Patient Medical History Hx Seizures: No Hx Stroke: No Hx Dementia: No Hx Asthma: No Hx of COPD: No Hx Cardiac Disorders: Yes - hypercholesterolemia, A-Fib Hx Congestive Heart Failure: No Hx Pacemaker: No Hx Hypertension: Yes Hx Thyroid Disease: No Hx Diabetes: Yes Hx Gastroesophageal Reflux: No Hx Renal Disease: No Hx Cancer: No Hx of HIV: No Hx Hepatitis C: No Hx MRSA: Yes Surgical History: noncontributory - Vaccination History Hx Tetanus, Diphtheria Vaccination: No Hx Influenza Vaccination: Yes Hx Pneumococcal Vaccination: Yes - Social History Hx Tobacco Use: No Hx Chewing Tobacco Use: No Hx Alcohol Use: No Hx Substance Use: No Hx Substance Use Treatment: No Hx Depression: No Hx Physical Abuse: No Hx Emotional Abuse: No Hx Suspected Abuse: No - Activities of Daily Living Shelter/Assisted Living (if applicable):: [facility] Family Medical History - Family History Mother Family History: Unknown Hx Family Cancer: Yes Physical Exam - Physical Exam General Appearance: Alert, Frail Eye Exam: bilateral normal - Pale sclera Ears, Nose, Throat: hearing grossly normal, normal ENT inspection Neck: full range of motion, supple Respiratory: lungs clear, normal breath sounds, no respiratory distress, no accessory muscle use Cardiovascular/Chest: normal peripheral pulses, regular rate, rhythm, no edema Peripheral Pulses: radial,right: 2+, radial,left: 2+ Gastrointestinal/Abdominal: non tender, soft Rectal Exam: deferred Back Exam: no CVA tenderness, no vertebral tenderness Extremity: normal range of motion, no pedal edema, normal capillary refill, other - Amputation sites appear to be healing. No overt evidence of infection clinically. Neurologic: transition social worker II-XII nml as tested, alert, normal mood/affect, oriented x 3 - The patient is a little bit off on the day, other - Chronic sensory deficits to lower extremities Skin Exam: other - Mild appropriate erythema and bruising surrounding operative sites. Comments: Vital Signs - 24 hr 11/29/19 11/29/19 11/30/19 22:06 23:04 00:00 Temperature 97.8 F Pulse Rate [ 87 79 86 monitor] Respiratory 18 16 14 Rate Blood Pressure 148/65 146/78 [Left Arm] O2 Sat by Pulse 97 97 97 Oximetry 11/30/19 11/30/19 00:39 01:00 Temperature Pulse Rate [ 72 83 monitor] Respiratory 16 20 Rate Blood Pressure 138/69 139/70 [Left Arm] O2 Sat by Pulse 96 96 Oximetry Laboratory Tests 11/29/19 11/29/19 11/29/19 00:01 00:01 23:00 WBC 3.5 L RBC 2.62 L Hgb 7.8 L* Hct 23.2 L MCV 88.3 MCH 29.6 MCHC 33.5 RDW 15.2 H Plt Count 217 MPV 8.3 Absolute Neuts (auto) 2.50 Absolute Lymphs (auto) 0.60 L Absolute Monos (auto) 0.30 Absolute Eos (auto) 0.10 Absolute Basos (auto) 0.00 Neutrophils % 71.9 Lymphocytes % 17.2 L Monocytes % 7.6 Eosinophils % 2.1 Basophils % 1.2 PT 23.7 H INR 2.39 H PTT (SP) 38.0 H Sodium 138 Potassium 3.5 L Chloride 108 Carbon Dioxide 21 Anion Gap 12.5 BUN 12 Creatinine 0.94 BUN/Creatinine Ratio 12.8 Random Glucose 160 H D Serum Osmolality 278.9 Lactic Acid Calcium 8.4 Total Bilirubin 0.5 AST 21 ALT < 8 L Alkaline Phosphatase 124 H Serum Total Protein 5.8 L Albumin 2.9 L Globulin 2.9 Albumin/Globulin Ratio 1.0 L Crossmatch 11/29/19 11/30/19 23:00 00:01 WBC RBC Hgb Hct MCV MCH MCHC RDW Plt Count MPV Absolute Neuts (auto) Absolute Lymphs (auto) Absolute Monos (auto) Absolute Eos (auto) Absolute Basos (auto) Neutrophils % Lymphocytes % Monocytes % Eosinophils % Basophils % PT INR PTT (SP) Sodium Potassium Chloride Carbon Dioxide Anion Gap BUN Creatinine BUN/Creatinine Ratio Random Glucose Serum Osmolality Lactic Acid 1.0 Calcium Total Bilirubin AST ALT Alkaline Phosphatase Serum Total Protein Albumin Globulin Albumin/Globulin Ratio Crossmatch See Detail Progress - Progress Progress: 11/30/19 01:37 The patient is a 79-year-old female sent up from the prison secondary to continued oozing from around the PICC line site. This is no surprise given the patient's last dose of Lovenox was this morning. The patient does have slightly more than expected elevation of her INR given her medications. There may be some underlying vitamin K deficiency and thus the patient was given 5 of vitamin K here tonight. Lovenox has been discontinued. The patient's H&H has dropped down into transfusion range and as she is seemingly symptomatic from it we will go ahead and give 1 unit of packed red blood cells. Will not give more at this point as there is a significant shortage of packed red blood cells. The patient will need to have her Plavix restarted either tomorrow evening or the morning after, given the recent femoral artery stenting with Dr. Jones. Perfusion seems to be adequate at this point. Admit for continued monitoring and transfusion overnight. Oozing seems to be a minimal at the PEG site at this point in time. We will leave the dressing on currently and planning on having it changed out tomorrow morning assuming it does not leak and need to be changed sooner. grace ronquillo [id number] Departure - Departure Clinical Impression: Symptomatic anemia, Hypercoagulable state Central line complication Qualifiers: Encounter type: initial encounter Qualified Code(s): T82.9XXA - Unspecified complication of cardiac and vascular prosthetic device, implant and graft, initial encounter Disposition: Admit Patient Departure Forms: ED Discharge - Pt. Copy, Patient Portal Self Enrollment Referrals: [facility] [Primary Care Provider] - 1-2 Weeks Home Medications: Ambulatory Orders Atorvastatin Calcium [Lipitor] 20 mg PO DAILY 05/05/13 Aspirin [Aspirin Adult Low Dose] 81 mg PO DAILY 01/28/15 Gemfibrozil [Lopid] 600 mg PO BID 07/22/15 amLODIPine BESYLATE [Norvasc] 10 mg PO DAILY 07/22/15 Acetaminophen W/ Codeine [Tylenol W/ CODEINE #3] 1 ea PO Q4HR PRN 08/11/18 Bisacodyl [Dulcolax] 5 mg PO DAILY 08/11/18 Carvedilol [Coreg] 3.125 mg PO BID 11/29/19 Clopidogrel Bisulfate [Plavix] 75 mg PO QD 11/29/19 Acetaminophen [Tylenol] 650 mg PO Q6HR PRN 11/30/19 Alum & Mag Hydrox-Simethicone [Mylanta Maximum Strength 400-400-40 mg/5Ml] 2.5 ml PO Q6HR PRN 11/30/19 Famotidine 20 mg PO DAILY 11/30/19 Ferrous Sulfate [Fe Tabs] 325 mg PO DAILY 11/30/19 Glucagon Inj [(None)] 1 mg IM PRN 11/30/19 Insulin Aspart [Novolog Flexpen] 100 unit SC PRN 11/30/19 Insulin Detemir [Levemir] 16 unit SUBCU BEDTIME 11/30/19 Magnesium Hydroxide [Milk Of Magnesia] 30 ml PO DAILY PRN 11/30/19 Multiple Vitamins W/ Minerals [Multivitamin & Mineral] 1 tablet PO DAILY 11/30/19 Polyethylene Glycol 3350 [Miralax] 17 gm PO DAILY 11/30/19 Sennosides 8.6MG [Senokot] 2 ea PO BEDTIME 11/30/19 Simvastatin 40 mg PO BEDTIME 11/30/19 Vancomycin HCl 1 gm IV DAILY 11/30/19 Verapamil HCl [Verapamil HCl ER] 120 mg PO DAILY 11/30/19 Decision To Admit - Decistion To Admit Decision to Admit Reason: Medical Nature Decision to Admit Date: 11/30/19 Decision to Admit Time: 01:41
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
[2019-11-30] MEDS ORDERED: SODIUM CHLORIDE 0.9% (FLUSH) 10 ML SYG IV PRN (02:14)
[2019-11-30] MEDS ORDERED: ACETAMINOPHEN 325 MG TAB PO PRN (02:14)
[2019-11-30] MEDS ORDERED: DEXTROSE 50% 25 GM/50 ML SYG IV PRN (02:14)
[2019-11-30] MEDS ORDERED: GLUCAGON INJ 1 MG VIAL SUBCU PRN (02:14)
[2019-11-30] MEDS ORDERED: IV SET AND CAP CHANGE INJ INJ SCH (02:30)
[2019-11-30] MEDS ORDERED: SODIUM CHLORIDE 0.9% 500ML 500 ML ONE (03:32)
[2019-11-30] MEDS ORDERED: SODIUM CHLORIDE 0.9% 500ML 500 ML IVS PRN (03:47)
[2019-11-30] MEDS: INSULIN LISPRO 100 UNITS/ML PEN SUBCU SCH ×4 (07:46→21:48)
[2019-11-30] MEDS ORDERED: VANCOMYCIN PER PHARMACY IVPB PRN (09:00)
[2019-11-30] MEDS ORDERED: amLODIPine BESYLATE 5 MG TAB PO SCH (09:00)
[2019-11-30] MEDS ORDERED: BISACODYL TAB 5 MG TAB PO SCH (09:00)
[2019-11-30] MEDS: VERAPAMIL ER 120 MG TAB PO SCH (09:08)
[2019-11-30] MEDS: FAMOTIDINE 20 MG TAB PO SCH (09:08)
[2019-11-30] MEDS: FERROUS SULFATE 325 MG TAB PO SCH (09:08)
[2019-11-30] MEDS: POLYETHYLENE GLYCOL 3350 17 GM PCKT PO SCH (09:08)
[2019-11-30] MEDS: CARVEDILOL 3.125 MG TAB PO SCH ×2 (09:08→21:30)
[2019-11-30] MEDS: ACETAMINOPHEN W/COD #3 TAB 1 EA TAB PO PRN ×3 (11:15→19:27)
[2019-11-30] MEDS: GEMFIBROZIL 600 MG TAB PO SCH ×2 (11:21→21:30)
[2019-11-30] MEDS ORDERED: ATORVASTATIN 20 MG TAB PO ONE (19:25)
[2019-11-30] MEDS ORDERED: ATORVASTATIN 20 MG TAB PO SCH (21:00)
[2019-11-30] MEDS ORDERED: SENNOSIDES 8.6 MG TAB PO SCH (21:00)
[2019-11-30] MEDS ORDERED: NON-FORMULARY MEDICATION 1 EA MIS (Simvastatin [Simvastatin] 40 MG) PO SCH (21:00)
[2019-11-30] MEDS ORDERED: VANCOMYCIN HCL INJ 1,000 MG in SODIUM CHLORIDE 0.9% 250ML 250 ML IVPB SCH (22:30)
[2019-12-01] MEDS: ACETAMINOPHEN W/COD #3 TAB 1 EA TAB PO PRN ×4 (01:07→14:47)
[2019-12-01] MEDS: INSULIN LISPRO 100 UNITS/ML PEN SUBCU SCH ×2 (07:20→12:09)
[2019-12-01] MEDS: FERROUS SULFATE 325 MG TAB PO SCH (07:55)
[2019-12-01] MEDS: GEMFIBROZIL 600 MG TAB PO SCH (09:22)
[2019-12-01] MEDS: POLYETHYLENE GLYCOL 3350 17 GM PCKT PO SCH (09:22)
[2019-12-01] MEDS: CARVEDILOL 3.125 MG TAB PO SCH (09:22)
[2019-12-01] MEDS: VERAPAMIL ER 120 MG TAB PO SCH (09:22)
[2019-12-01] MEDS: FAMOTIDINE 20 MG TAB PO SCH (09:22)
[2019-12-01 14:04] VITALS: BP 138/69; TEMP 98; O2SAT 96
[2019-12-01] MEDS ORDERED: POTASSIUM CHLORIDE 20 MEQ TAB PO ONE (14:30)
[2019-12-01] MEDS ORDERED: POTASSIUM CHLORIDE 20 MEQ TAB ONE (14:46)
[2019-12-01] MEDS ORDERED: MAGNESIUM SULFATE PREMIX 2GM 0 ML IVPB ONE (14:46)
[2019-12-01] MEDS: MAGNESIUM SULFATE PREMIX 2GM 2 GM in PREMIX BAG 1 BAG IVPB ONE ×2 (14:48→15:04)
[2019-12-01] MEDS ORDERED: MAGNESIUM OXIDE 400 MG TAB PO ONE (14:57)
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
== END 2019-12-01 15:49 ==
LOC: ER 21:51 → UNDOADMOB 11-30 01:46 → MS 11-30 01:46
PROVIDERS: ADMIT Nurse Practitioner Family; ATTEND Nurse Practitioner Acute Care
DX: D68.59 Other primary thrombophilia (principal); T82.838A Hemorrhage due to vascular prosthetic devices, implants and grafts, initial encounter; T80.89XA Other complications following infusion, transfusion and therapeutic injection, initial encounter; D50.0 Iron deficiency anemia secondary to blood loss (chronic); E11.51 Type 2 diabetes mellitus with diabetic peripheral angiopathy without gangrene; E87.8 Other disorders of electrolyte and fluid balance, not elsewhere classified; E87.6 Hypokalemia; I10 Essential (primary) hypertension; G89.29 Other chronic pain; M54.9 Dorsalgia, unspecified; E11.42 Type 2 diabetes mellitus with diabetic polyneuropathy; I48.91 Unspecified atrial fibrillation; E78.2 Mixed hyperlipidemia; K57.30 Diverticulosis of large intestine without perforation or abscess without bleeding; Z79.4 Long term (current) use of insulin; Z79.02 Long term (current) use of antithrombotics/antiplatelets; Z79.82 Long term (current) use of aspirin; Z79.899 Other long term (current) drug therapy; Z88.8 Allergy status to other drugs, medicaments and biological substances; Z98.890 Other specified postprocedural states; Z95.828 Presence of other vascular implants and grafts; Z89.411 Acquired absence of right great toe; Z89.421 Acquired absence of other right toe(s); Z87.891 Personal history of nicotine dependence
CPT/HCPCS: 96366; 96365; 96376; 96372 ×2; Q0163; J3430; J7512; J7040; J7050 ×2; J3370 ×2; A4216; J1815; 80048; 80053 ×2; 82948 ×6; 85014 ×2; 85018 ×2; 36415 ×3; 85384; 85025 ×2; 83735; 85730 ×2; 85610 ×2; 36416 ×4; 83605; P9016; 86922; 86900; 86901; 86850; 94760 ×3; 99285; G0378

== ENCOUNTER 2019-12-29 19:38 | Inpatient (IN) | payer MEDICARE ==
[2019-12-29] MEDS ORDERED: cefTRIAXone SODIUM 1 GM in SODIUM CHL 0.9% 50ML MIN-BAG+ 50 ML IVPB ONE (19:59)
--- NOTE | 2019-12-29 20:02 | ED.PDOC ---
History of Present Illness - General Chief Complaint: Respiratory Problem Stated Complaint: Cough, SOB, AMS Time Seen by Provider: 12/29/19 19:49 - History of Present Illness Comments: 79 F +pmh presents via EMS from nursing facility c/o cough. Pt was found to be requiring more oxygen at the RN facility and was hypoxic in the 80's on room air. Pt denies CP, SOB, n/v/d, known fever or chills, abdominal pain, back pain, dysuria. She endorses urinary frequency and urgency. Denies alleviating/aggravating factors. Denies any other complaints at this time. Appropriate PPE of surgical mask, gown, gloves, and eye protection (if encounter >5 minutes) utilized with every patient encounter; in accordance with hospital policy. Allergies/Adverse Reactions: Allergies Iodine Allergy (Unknown, Verified 08/12/18 09:25) Home Medications: Ambulatory Orders Atorvastatin Calcium [Lipitor] 40 mg PO BEDTIME 05/05/13 Gemfibrozil [Lopid] 600 mg PO BID 07/22/15 Acetaminophen W/ Codeine [Tylenol W/ CODEINE #3] 1 ea PO Q4H PRN 08/11/18 Carvedilol [Coreg] 3.125 mg PO BID 11/29/19 Alum & Mag Hydrox-Simethicone [Antacid 200-200-20 mg/5Ml] 1 ea PO Q6H PRN 11/30/19 Famotidine 20 mg PO DAILY 11/30/19 Ferrous Sulfate [Fe Tabs] 325 mg PO DAILY 11/30/19 Glucagon Inj 1 mg IM PRN 11/30/19 Insulin Aspart [Novolog Flexpen] See Protocol SC ACHS PRN 11/30/19 Insulin Detemir [Levemir Pen] 16 unit SUBCU BEDTIME 11/30/19 Polyethylene Glycol 3350 [Miralax] 17 gm PO DAILY 11/30/19 Verapamil HCl [Verapamil HCl ER] 120 mg PO BEDTIME 11/30/19 Bioflavonoid Products [[id number]] 1 tab PO 12/29/19 Doxycycline (Monohydrate) [Doxycycline] 75 mg PO 12/29/19 Review of Systems - Review of Systems Constitutional: Denies: chills, fever EENTM: Denies: nose congestion, throat pain Respiratory: States: cough. Denies: short of breath Cardiology: Denies: chest pain, palpitations Gastrointestinal/Abdominal: Denies: abdominal pain, diarrhea, nausea, vomiting Genitourinary: States: frequency, other - +urgency. Denies: dysuria Musculoskeletal: Denies: back pain, joint pain, muscle pain Skin: Denies: change in color, rash Neurological: States: other - no dizziness. Denies: headache Hematologic/Lymphatic: Denies: blood clots, easy bruising Past Medical History (General) - Patient Medical History Hx Seizures: No Hx Stroke: No Hx Dementia: No Hx Asthma: No Hx of COPD: No Hx Cardiac Disorders: Yes - A FIB Hx Congestive Heart Failure: No Hx Pacemaker: No Hx Hypertension: Yes Hx Thyroid Disease: No Hx Diabetes: Yes Hx Gastroesophageal Reflux: No Hx Renal Disease: No Hx Cancer: No Hx of HIV: No Hx Hepatitis C: No Hx MRSA: No MRSA Source:: Wound Surgical History: no surgical history - Vaccination History Hx Tetanus, Diphtheria Vaccination: Yes Hx Influenza Vaccination: Yes Hx Pneumococcal Vaccination: Yes - Social History Hx Tobacco Use: No Hx Chewing Tobacco Use: No Hx Alcohol Use: No Hx Substance Use: No Hx Substance Use Treatment: No Hx Depression: No Feels Threatened In Home Enviroment: No Feels Threatened In a Relationship: No Hx Physical Abuse: No Hx Emotional Abuse: No Hx Suspected Abuse: No - Activities of Daily Living Fpc/Assisted Living (if applicable):: [facility] - Female History Patient is a Female of Child Bearing Age (10 -59 yrs old): No Family Medical History - Family History Mother Family History: Unknown Hx Family Cancer: Yes Physical Exam - Physical Exam General Appearance: Alert, Comfortable, No apparent distress, Other - Oriented to person Eye Exam: bilateral normal ENT Exam: normal ENT inspection, hearing grossly normal Neck: non-tender, full range of motion, supple, normal inspection Respiratory: lungs clear, normal breath sounds, no respiratory distress, no accessory muscle use, other - no cough during examination Cardiovascular/Chest: normal peripheral pulses, no edema, no JVD, tachycardia, other - regular rhythm Gastrointestinal/Abdominal: normal bowel sounds, non tender, soft Extremity: normal range of motion, non-tender, no pedal edema 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 I will check labs, imaging, EKG, provide appropriate pharmacotherapy, and continue to monitor/reassess. Dispo will depend on lab, ekg, and imaging results and overall course in ED; however, admission is expected. Stephen Queen DO [facility]: [phone] I have consulted with hospitalist Nereida Archibald and discussed pt's case. She agrees with admission and lovenox. She will consider performing VQ scan of pt in the morning. Multiple rechecks of pt throughout ED encounter; with continual improvement and stabilization. No acute decompensation while in ED. Pt is unable to recall if she has an iodine or contrast allergy. NAD, VSS, and she states she is feeling better at this time. - Results/Orders Results/Orders: EKG @2014 Read @2017 Sinus tachycardia @113, left axis deviation, QRS 102, QTc 471, no ST elevations/depressions, nonspecific ST/T-wave changes. No STEMI. Vital Signs - 24 hr 12/29/19 12/29/19 12/29/19 19:43 19:47 20:47 Temperature 100.2 F H Pulse Rate [ 107 H 107 H 117 H Pulse Ox] Respiratory 18 18 20 Rate Blood Pressure 200/111 176/99 [Left Arm] O2 Sat by Pulse 96 90 L Oximetry 12/29/19 12/29/19 21:00 22:00 Temperature Pulse Rate [ 114 H 108 H Pulse Ox] Respiratory 20 20 Rate Blood Pressure 199/101 192/85 [Left Arm] O2 Sat by Pulse 90 L 97 Oximetry 12/29/19 19:59 UA [URINALYSIS] Stat 12/29/19 20:00 EKG STAT 12/29/19 20:25 Azithromycin IV [Zithromax IV] 500 mg Sodium Chloride 0.9% 250Ml [NS 250ml] 250 ml IVPB ONCE 12/29/19 20:40 BLOOD CULTURE Stat 12/29/19 21:16 SARS-COV2 PCR HIGH RISK MC Stat 12/29/19 21:54 ED Intent to Admit Routine Laboratory Results - last 24 hr 12/29/19 12/29/19 12/29/19 20:16 20:16 20:16 WBC 6.4 RBC 3.52 L Hgb 10.4 L Hct 30.9 L MCV 87.8 MCH 29.5 MCHC 33.6 RDW 17.0 H Plt Count 323 MPV 7.6 Absolute Neuts (auto) Not Reportable Absolute Lymphs (auto) Not Reportable Absolute Monos (auto) Not Reportable Absolute Eos (auto) Not Reportable Neutrophils % Not Reportable Neutrophils % (Manual) 83.0 H Lymphocytes % Not Reportable Lymphocytes % (Manual) 5.0 Monocytes % Not Reportable Monocytes % (Manual) 7.0 Eosinophils % Not Reportable Basophils % Not Reportable Band Neutrophils 5.0 H Platelet Estimate Normal Normal RBC Morphology 1+aniso D-Dimer, Quantitative 1890.0 H* Sodium 141 Potassium 3.5 L Chloride 97 L Carbon Dioxide 31 Anion Gap 16.5 BUN 12 Creatinine 0.88 BUN/Creatinine Ratio 13.6 Random Glucose 121 H Serum Osmolality 282.3 Lactic Acid Calcium 8.9 Total Bilirubin 0.7 AST 21 ALT < 8 L Alkaline Phosphatase 103 Troponin I Serum Total Protein 7.7 Albumin 3.3 Globulin 4.4 H Albumin/Globulin Ratio 0.8 L 12/29/19 12/29/19 20:16 20:16 WBC RBC Hgb Hct MCV MCH MCHC RDW Plt Count MPV Absolute Neuts (auto) Absolute Lymphs (auto) Absolute Monos (auto) Absolute Eos (auto) Neutrophils % Neutrophils % (Manual) Lymphocytes % Lymphocytes % (Manual) Monocytes % Monocytes % (Manual) Eosinophils % Basophils % Band Neutrophils Platelet Estimate Normal RBC Morphology D-Dimer, Quantitative Sodium Potassium Chloride Carbon Dioxide Anion Gap BUN Creatinine BUN/Creatinine Ratio Random Glucose Serum Osmolality Lactic Acid 1.6 Calcium Total Bilirubin AST ALT Alkaline Phosphatase Troponin I 0.05 Serum Total Protein Albumin Globulin Albumin/Globulin Ratio EXAM DESCRIPTION: Chest,1 View CLINICAL HISTORY: 79 years Female cough COMPARISON: 11/29/2019 FINDINGS: Cardiac size and mediastinal contour appear stable. Increased density in the left perihilar region with linear atelectasis in the left midlung field. Infiltrate is not excluded. Right lung appears clear. Mediastinum appears slightly widened likely on the basis of patient rotation. IMPRESSION: Increased density in the left perihilar region and retrocardiac region which may reflect infiltrate versus areas of atelectasis. Electronically signed by: Pam Franco MD 12/29/2019 9:51 PM CDT I have reviewed imaging, radiology read, and agree with above findings. - EKG/XRAY/CT EKG: Sinus, Tachy Departure - Departure Clinical Impression: Hypoxia, D-dimer, elevated, Suspected severe acute respiratory syndrome coronavirus 2 (SARS-CoV-2) infection Community acquired pneumonia Qualifiers: Laterality: left Lung location: unspecified part of lung Qualified Code(s): J18.9 - Pneumonia, unspecified organism Time of Disposition: 21:51 Disposition: Admit Patient Condition: Fair Departure Forms: ED Discharge - Pt. Copy, Patient Portal Self Enrollment Referrals: [facility] [Primary Care Provider] - 1-2 Weeks Home Medications: Ambulatory Orders Atorvastatin Calcium [Lipitor] 40 mg PO BEDTIME 05/05/13 Gemfibrozil [Lopid] 600 mg PO BID 07/22/15 Acetaminophen W/ Codeine [Tylenol W/ CODEINE #3] 1 ea PO Q4H PRN 08/11/18 Carvedilol [Coreg] 3.125 mg PO BID 11/29/19 Alum & Mag Hydrox-Simethicone [Antacid 200-200-20 mg/5Ml] 1 ea PO Q6H PRN 11/30/19 Famotidine 20 mg PO DAILY 11/30/19 Ferrous Sulfate [Fe Tabs] 325 mg PO DAILY 11/30/19 Glucagon Inj 1 mg IM PRN 11/30/19 Insulin Aspart [Novolog Flexpen] See Protocol SC ACHS PRN 11/30/19 Insulin Detemir [Levemir Pen] 16 unit SUBCU BEDTIME 11/30/19 Polyethylene Glycol 3350 [Miralax] 17 gm PO DAILY 11/30/19 Verapamil HCl [Verapamil HCl ER] 120 mg PO BEDTIME 11/30/19 Bioflavonoid Products [[id number]] 1 tab PO 12/29/19 Doxycycline (Monohydrate) [Doxycycline] 75 mg PO 12/29/19 Decision To Admit - Decistion To Admit Decision to Admit Reason: Admit from ER Decision to Admit Date: 12/29/19 Decision to Admit Time: 21:51
[2019-12-29] MEDS ORDERED: AZITHROMYCIN IV 500 MG in SODIUM CHLORIDE 0.9% 250ML 250 ML IVPB ONE (20:25)
--- NOTE | 2019-12-29 21:52 | RAD ---
EXAM DESCRIPTION: Chest,1 View CLINICAL HISTORY: 79 years Female cough COMPARISON: 11/29/2019 FINDINGS: Cardiac size and mediastinal contour appear stable. Increased density in the left perihilar region with linear atelectasis in the left midlung field. Infiltrate is not excluded. Right lung appears clear. Mediastinum appears slightly widened likely on the basis of patient rotation. IMPRESSION: Increased density in the left perihilar region and retrocardiac region which may reflect infiltrate versus areas of atelectasis. Electronically signed by: Pam Franco MD 12/29/2019 9:51 PM CDT
[2019-12-29] MEDS ORDERED: ENOXAPARIN SODIUM 80 MG/0.8 ML SYG SUBCU ONE (22:04)
--- NOTE | 2019-12-29 22:12 | HP ---
SUPERVISING PHYSICIAN: Jerardo Almaguer MD CHIEF COMPLAINT: Shortness of breath and low oxygen saturations. HISTORY OF PRESENT ILLNESS: This is a 79-year-old female patient who lives at [facility]. She was found to have some upper respiratory symptoms that had been going on for several days. Her O2 saturations were in the mid-80s on room air and she does not normally wear oxygen. She has been exposed to a COVID-19 patient. Her primary care physician, Dr. Rigo Conti, called me and told me he was sending her to the Emergency Room. In the ER, her initial vital signs were temperature 100.2, heart rate 107, respiratory rate 18, blood pressure 200/111. It did come down to 99/101. O2 saturation 90% on 2 liters nasal cannula, but has been reported to be in the mid-80s at the assisted. Her lab studies were done and her CBC showed hemoglobin 10.4, hematocrit 30.9. She had a left shift on her differential. D-dimer was elevated at 1,890. She does have an allergy to iodine, so they did not do a CTA of the chest. Her oxygen saturation were in the low 90s on supplemental oxygen. Sodium 141, potassium 3.5, chloride 97, carbon dioxide 31, lactic acid 1.6, liver enzymes within normal limits. Influenza A and B per PCR were both negative. She was tested for COVID-19. Blood cultures were drawn. She was given some fluids and azithromycin and Rocephin. Due to her elevated D-dimer, she was also given 1 mg per kg dosing of Lovenox. Her chest x-ray showed increase density in the left perihilar region and retrocardiac region that may reflect infiltrate versus areas of atelectasis. I was called for hospital admission. PAST MEDICAL HISTORY: 1. Hypertension. 2. Diabetes mellitus, type 2, on insulin. 3. Chronic back pain. 4. Diabetic neuropathy. 5. Hyperlipidemia. PAST SURGICAL HISTORY: 1. Appendectomy. 2. Back surgery. 3. 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 4. Femoral artery stent placement. OUTPATIENT MEDICATIONS: Per the EMR and awaiting verification. ALLERGIES: IODINE. FAMILY HISTORY: Noncontributory. SOCIAL HISTORY: She lives at [facility]. She quit smoking over 15 years ago. There is no history of illegal drugs or ETOH use. REVIEW OF SYSTEMS: GENERAL: Positive for weakness and fever. Negative for weight changes. HEENT: Negative for sinus symptoms, ear pain, vision changes or sore throat. RESPIRATORY: Positive for wheezing, coughing or shortness of breath. CARDIAC: Negative for chest pain, palpitations or tachycardia. GASTROINTESTINAL: Negative for nausea, vomiting, diarrhea, constipation. GENITOURINARY: Negative for hematuria, dysuria or polyuria. MUSCULOSKELETAL: Negative for arthralgias, myalgias. SKIN: Negative for lesions or rashes. NEUROLOGIC: Negative for headache, syncope or seizures. PHYSICAL EXAMINATION: VITAL SIGNS: Temperature 100.2, heart rate 108, blood pressure 192/85, respiratory rate 20, O2 saturation 97% on 2 liters nasal cannula. GENERAL: This is a 79-year-old female patient lying in her hospital bed. She is in no acute respiratory distress at the time of this exam. HEENT: Normocephalic, atraumatic. Pupils are equal and reactive. Oropharynx is clear. NECK: Supple without mass. RESPIRATORY: Diminished breath sounds throughout with some scattered rhonchi and a few expiratory wheezes, especially in the left mid lobe. CARDIOVASCULAR: Tachycardic rate and regular rhythm. GASTROINTESTINAL: Abdomen is soft, nondistended, nontender. Bowel sounds are positive. BACK: Deferred. GENITOURINARY: Deferred. NEUROLOGIC: She is awake and alert. Cranial nerves II-XII are grossly intact as tested. LABORATORY: Labs and films are as per history of present illness. IMPRESSION: 1. Sepsis related to left sided pneumonia, most likely healthcare acquired. Her temperature is 100.2, heart rate 107, O2 saturations at the nursing facility in the mid-80s. She also had 5% bands. 2. Elevated D-dimer, now on Lovenox. 3. High risk for COVID-19. 4. Hypertension. 5. Diabetes mellitus, type 2. PLAN: The patient has been admitted to the hospital. She will have aggressive pulmonary hygiene as well as continue on her azithromycin and Rocephin. I will recheck her labs and x-ray in the morning. I have also done followup D-dimer ferritin and CRP. I have also ordered a CT scan for tomorrow due to her elevated D-dimer. At this point, she received Lovenox 1 mg per kg in the Emergency Room and I have continued it daily. Depending on the results of her VQ scan as well as her morning lab, we may have to increase that to b.i.d. I have not continue her on any Decadron at this time. We will reevaluate that in the morning. I have also put her on sliding scale insulin and we will restart her home medications as soon as they are verified. She did have the COVID-19 test in the Emergency Room and we will follow the results of that. We will continue to monitor the patient closely and follow as needed. #[id number] [facility]
[2019-12-29] MEDS ORDERED: ONDANSETRON INJ 4 MG/2 ML VIAL IV PRN (22:31)
[2019-12-29] MEDS ORDERED: SODIUM CHLORIDE 0.9% (FLUSH) 10 ML SYG IV PRN (22:31)
[2019-12-29] MEDS ORDERED: ALBUTEROL SULFATE 2.5 MG/3 ML VIAL NEB PRN (22:31)
[2019-12-29] MEDS ORDERED: ACETAMINOPHEN W/COD #3 TAB 1 EA TAB PO PRN (22:37)
[2019-12-29] MEDS ORDERED: VERAPAMIL HCL 120 MG PO SCH (22:38)
[2019-12-29] MEDS ORDERED: GLUCAGON INJ 1 MG VIAL SUBCU PRN (22:39)
[2019-12-29] MEDS ORDERED: DEXTROSE 50% 25 GM/50 ML SYG IV PRN (22:39)
[2019-12-29] MEDS ORDERED: VERAPAMIL ER 120 MG TAB PO ONE (23:14)
[2019-12-29] MEDS: CARVEDILOL 3.125 MG TAB PO SCH (23:51)
[2019-12-30] MEDS: IV SET AND CAP CHANGE INJ INJ SCH (00:23)
[2019-12-30] MEDS: ACETAMINOPHEN 325 MG TAB PO PRN (04:08)
[2019-12-30] MEDS ORDERED: PANTOPRAZOLE SODIUM IV 40 MG VIAL IV SCH (06:30)
--- NOTE | 2019-12-30 07:09 | RAD ---
EXAM DESCRIPTION: XR Chest,1 View CLINICAL HISTORY: 79 years Female, Pneumonia COMPARISON: 12/29/2019 TECHNIQUE: Single AP chest radiograph. FINDINGS: Stable bilateral lung opacities. No pneumothorax or pleural effusion. Stable cardiomediastinal contour. Normal osseous structures. IMPRESSION: 1. Stable chest. Electronically signed by: Armando Castillo MD 12/30/2019 7:07 AM CDT
[2019-12-30] MEDS ORDERED: FAMOTIDINE 20 MG TAB PO SCH (09:00)
[2019-12-30] MEDS: INSULIN LISPRO 100 UNITS/ML PEN SUBCU SCH ×4 (09:06→20:36)
[2019-12-30] MEDS: cefTRIAXone SODIUM 1 GM in SODIUM CHL 0.9% 50ML MIN-BAG+ 50 ML IVPB SCH (09:25)
[2019-12-30] MEDS: CARVEDILOL 3.125 MG TAB PO SCH ×2 (09:25→20:36)
[2019-12-30] MEDS: POLYETHYLENE GLYCOL 3350 17 GM PCKT PO SCH (09:25)
[2019-12-30] MEDS: FERROUS SULFATE 325 MG TAB PO SCH (09:25)
[2019-12-30] MEDS: GEMFIBROZIL 600 MG TAB PO SCH ×2 (09:25→20:36)
[2019-12-30] MEDS: SODIUM CHLORIDE 0.9% (FLUSH) 10 ML SYG IV SCH ×2 (09:26→20:37)
[2019-12-30] MEDS: POTASSIUM CHLORIDE 20 MEQ TAB PO SCH ×2 (09:27→13:41)
[2019-12-30] MEDS: ALBUTEROL SULFATE 2.5 MG/3 ML VIAL NEB SCH ×4 (10:02→20:00)
[2019-12-30] MEDS: AZITHROMYCIN IV 500 MG in SODIUM CHLORIDE 0.9% 250ML 250 ML IVPB SCH (10:06)
[2019-12-30] MEDS: ENOXAPARIN SODIUM 60 MG/0.6 ML SYG SUBCU SCH ×2 (10:06→20:36)
[2019-12-30] MEDS: DEXAMETHASONE INJ 4 MG/ML VIAL IV SCH (10:07)
[2019-12-30] MEDS ORDERED: KCL 20 MEQ/NS 1,000 ML IVS PRN (13:19)
[2019-12-30] MEDS ORDERED: SODIUM CHLORIDE 0.9% 250ML 250 ML IVS ONE (13:20)
[2019-12-30] MEDS: guaiFENesin ER TAB 600 MG TAB PO SCH ×2 (13:41→20:35)
[2019-12-30] MEDS: VERAPAMIL ER 120 MG TAB PO SCH (20:35)
[2019-12-30] MEDS: ATORVASTATIN 20 MG TAB PO SCH (20:35)
[2019-12-30] MEDS: PROMETHAZINE W/CODEINE SYR 5 ML UD PO PRN (23:20)
[2019-12-31] MEDS ORDERED: PANTOPRAZOLE SODIUM TAB 40 MG PO ONE (03:59)
[2019-12-31] MEDS: PANTOPRAZOLE SODIUM TAB 40 MG PO SCH (06:07)
--- NOTE | 2019-12-31 07:38 | RAD ---
: 1940. Technique: Portable AP chest x-ray. Comparison: Chest x-ray December 30, 2019. CT scan on November 29, 2019 Clinical history: pna. Heart size: Heart size is borderline enlarged and the aorta is tortuous. Mitral annular calcification noted. Lungs: There are diffuse septal opacity suggesting mild interstitial edema though no Reagan B lines are evident. There is small band of linear density in the lingula consistent with subsegmental atelectasis. Inspiration is shallow. Pleura: No pleural effusion. No pneumothorax is evident and no subcutaneous emphysema is suggested. Mediastinum and osvaldo: Unremarkable. Skeletal: Displaced left rib fractures. Involving the left sixth and seventh ribs. Note is made of a calcification in the left breast. Support tubings: None. Impression: 1. Borderline cardiomegaly. Mild interstitial edema. 2. Lingular linear atelectasis and left rib fractures. Electronically signed by: Mohit Deal MD 12/31/2019 7:36 AM CDT
[2019-12-31] MEDS: INSULIN LISPRO 100 UNITS/ML PEN SUBCU SCH ×4 (08:00→22:43)
--- NOTE | 2019-12-31 08:28 | PN ---
SUPERVISING PHYSICIAN: Jerardo Almaguer MD DATE: 12/30/19 SUBJECTIVE: The patient is sitting up in her chair in her room. She is asleep. She awakens easily. She is still short of breath especially with exertion, but she does feel better than she did yesterday. She denies chest pain, nausea or vomiting. OBJECTIVE: VITAL SIGNS: Temperature 97.7, heart rate 81, blood pressure 125/82, respiratory rate 16, O2 saturation 93% on 4 liters nasal cannula. RESPIRATORY: She has a few expiratory wheezes throughout all lung amado with some rhonchi in the left lower airways. She is slightly tachypneic when she talks and can speak in 2 to 3 word phrases and gets noticeably more short of breath. CARDIAC: Regular rate and rhythm. GASTROINTESTINAL: Abdomen is soft, nondistended, nontender. Bowel sounds are positive. NEUROLOGIC: Awake, alert and oriented times three. LABORATORY: WBCs 6.4, hemoglobin 9.6, hematocrit 29.2. She has a left shift on her differential. D-dimer has gone up to 2,220. Sodium 140, potassium 2.9, chloride 99, calcium 8.3, magnesium 1.8. Ferritin 64.9. Liver enzymes within normal limits. C-reactive protein 12.7. Preliminary blood cultures show no growth after 24 hours. Urine culture pending. Sputum culture pending. Chest x-ray shows stable chest. All other labs and films have been reviewed via the EMR. ASSESSMENT: 1. Sepsis related to left sided pneumonia, most likely healthcare acquired. Her temperature is 100.2, heart rate 107, O2 saturations at the nursing facility in the mid-80s. She also had 5% bands. 2. Elevated D-dimer, now on Lovenox. 3. High risk for COVID-19. 4. Hypertension. 5. Diabetes mellitus, type 2. PLAN: We will continue present supportive care. Because her D-dimer was slightly more elevated, I have increased her Lovenox to 1 mg per kg b.i.d. I have also added Decadron 6 mg daily. She got some potassium supplementation. I will recheck her labs in the morning including her D-dimer, CRP and ferritin. I will hold on a chest x-ray for now. We will continue to monitor the patient closely and follow as needed. [facility][id number] [facility]
[2019-12-31] MEDS: DEXAMETHASONE INJ 4 MG/ML VIAL IV SCH (08:44)
[2019-12-31] MEDS: ALBUTEROL SULFATE 2.5 MG/3 ML VIAL NEB SCH ×4 (09:02→20:20)
[2019-12-31] MEDS: GEMFIBROZIL 600 MG TAB PO SCH ×2 (09:15→21:18)
[2019-12-31] MEDS: CARVEDILOL 3.125 MG TAB PO SCH ×2 (09:15→21:18)
[2019-12-31] MEDS: FERROUS SULFATE 325 MG TAB PO SCH (09:15)
[2019-12-31] MEDS: ENOXAPARIN SODIUM 60 MG/0.6 ML SYG SUBCU SCH ×2 (09:15→21:21)
[2019-12-31] MEDS: SODIUM CHLORIDE 0.9% (FLUSH) 10 ML SYG IV SCH ×2 (09:15→21:20)
[2019-12-31] MEDS: POLYETHYLENE GLYCOL 3350 17 GM PCKT PO SCH (09:15)
[2019-12-31] MEDS: guaiFENesin ER TAB 600 MG TAB PO SCH ×2 (09:15→21:18)
[2019-12-31] MEDS: cefTRIAXone SODIUM 1 GM in SODIUM CHL 0.9% 50ML MIN-BAG+ 50 ML IVPB SCH (09:15)
[2019-12-31] MEDS: DEXAMETHASONE INJ 10 MG/ML VIAL IV SCH (09:15)
[2019-12-31] MEDS: AZITHROMYCIN IV 500 MG in SODIUM CHLORIDE 0.9% 250ML 250 ML IVPB SCH (10:34)
[2019-12-31] MEDS ORDERED: FUROSEMIDE INJ 20 MG/2 ML VIAL IV ONE (11:30)
--- NOTE | 2019-12-31 15:19 | PN ---
SUPERVISING PHYSICIAN: Alexi Almaguer M.D. DATE: 12/31/19 SUBJECTIVE: The patient is sitting up in the chair in her room. She says she feels better. Still gets some shortness of breath and coughing quite a bit, but the Mucinex has helped but the cough is still keeping her up at night. It did help with her cough syrup from last night, otherwise denies nausea or vomiting or chest pain. OBJECTIVE: VITAL SIGNS: Temperature 97.7, heart rate 66, blood pressure 158/77, respiratory rate 20, O2 saturation 96%. RESPIRATORY: Scattered rhonchi throughout, diminished at the bases. There are a few scattered rhonchi in the left middle lobe. CARDIAC: Regular rate and rhythm. NEUROLOGIC: She is awake, alert and oriented times three. LABORATORY: WBCs are 4.6, hemoglobin 10.2, hematocrit 30.8. She does have a left shift on her differential. D-dimer has improved to 1,460. Electrolytes are basically within normal limits with a creatinine that is 1.06. Calcium is 8.3. C reactive protein has improved slightly to 8.1. Preliminary blood cultures show no growth after 24 hours. Sputum culture is pending. Urine culture is pending. Chest x-ray shows: 1. Borderline cardiomegaly with mild interstitial edema. 2. Lingular linear atelectasis and left rib fracture. ASSESSMENT: 1. Sepsis related to left sided pneumonia, most likely healthcare acquired. Her temperature is 100.2, heart rate 107, O2 saturations at the nursing facility in the mid-80s. She also had 5% bands. 2. Elevated D-dimer, now on Lovenox. 3. COVID-19 positive. 4. Hypertension. 5. Diabetes mellitus, type 2. PLAN: We will continue present supportive care. She will continue in isolation due to her COVID-19 status. I have ordered repeat lab for in the morning, including a D-dimer and CRP. I have also ordered bladder teaching with discontinuance of her Duque when appropriate. Her fluids have been discontinued. I have also given her 1 dose of IV Lasix. I have encouraged good pulmonary hygiene, including incentive spirometry and self proning as much as possible. Will continue to monitor closely and follow as needed. [facility][id number] [facility]
[2019-12-31] MEDS: VERAPAMIL ER 120 MG TAB PO SCH (21:18)
[2019-12-31] MEDS: ATORVASTATIN 20 MG TAB PO SCH (21:18)
[2019-12-31] MEDS: PROMETHAZINE W/CODEINE SYR 5 ML UD PO PRN (21:19)
[2019-12-31] MEDS: ACETAMINOPHEN 325 MG TAB PO PRN (22:42)
[2020-01-01] MEDS: INSULIN LISPRO 100 UNITS/ML PEN SUBCU SCH ×5 (00:31→20:47)
[2020-01-01] MEDS: PANTOPRAZOLE SODIUM TAB 40 MG PO SCH (06:03)
--- NOTE | 2020-01-01 07:37 | RAD ---
: 1940. Technique: Portable upright AP chest x-ray. Comparison: December 31, 2019. Clinical history: covid pna. Heart size: Borderline enlarged unchanged. Calcified aorta. Lungs: Shallow inspiration. Linear band of density in the lingula is improved. Background reticular opacities suggesting mild interstitial edema also improved. Pleura: No pleural effusion. No pneumothorax. Mediastinum and osvaldo: Unremarkable. Skeletal: Left rib fracture deformities. Support tubings: None. Impression: 1. Interval improving aeration. Electronically signed by: Mohit Deal MD 01/01/2020 7:35 AM CDT
[2020-01-01] MEDS: ALBUTEROL SULFATE 2.5 MG/3 ML VIAL NEB SCH ×4 (08:20→20:30)
[2020-01-01] MEDS: guaiFENesin ER TAB 600 MG TAB PO SCH ×2 (09:33→20:32)
[2020-01-01] MEDS: cefTRIAXone SODIUM 1 GM in SODIUM CHL 0.9% 50ML MIN-BAG+ 50 ML IVPB SCH (09:33)
[2020-01-01] MEDS: CARVEDILOL 3.125 MG TAB PO SCH ×2 (09:33→20:32)
[2020-01-01] MEDS: GEMFIBROZIL 600 MG TAB PO SCH ×2 (09:33→20:32)
[2020-01-01] MEDS: POLYETHYLENE GLYCOL 3350 17 GM PCKT PO SCH (09:33)
[2020-01-01] MEDS: DEXAMETHASONE INJ 10 MG/ML VIAL IV SCH (09:33)
[2020-01-01] MEDS: FERROUS SULFATE 325 MG TAB PO SCH (09:33)
[2020-01-01] MEDS: SODIUM CHLORIDE 0.9% (FLUSH) 10 ML SYG IV SCH ×2 (09:34→20:35)
[2020-01-01] MEDS: ENOXAPARIN SODIUM 60 MG/0.6 ML SYG SUBCU SCH ×2 (09:35→20:33)
[2020-01-01] MEDS: AZITHROMYCIN IV 500 MG in SODIUM CHLORIDE 0.9% 250ML 250 ML IVPB SCH (10:56)
[2020-01-01] MEDS ORDERED: VANCOMYCIN PER PHARMACY INJ SCH (14:00)
--- NOTE | 2020-01-01 15:39 | PN ---
SUPERVISING PHYSICIAN: Alexi Almaguer M.D. DATE: SUBJECTIVE: The patient is still having shortness of breath and a cough. She has been afebrile now for 24 hours. She has not had any other complaints, including nausea, vomiting, diarrhea or chest pains. Her sputum did come back with gram positive cocci and is under the care of azithromycin given that she is at high risk for MRSA. Urine culture as noted was negative and she remains asymptomatic in regards to a urinary tract infection. OBJECTIVE: VITAL SIGNS: Temperature 97.6, pulse 61, blood pressure 142/72, respirations 20, satting 91% on nasal cannula at 2 liters nasal cannula. GENERAL: The patient is resting comfortably. Does not appear to be in any distress acutely. CHEST: Continues with scattered rhonchi more prominent on the left than the right previously. She does remain diminished towards the bases. No obvious wheezing or rales. HEART: Regular rate and rhythm. ABDOMEN: Soft, non-tender. Positive bowel sounds. EXTREMITIES: Without edema. NEUROLOGIC: She is alert and oriented times three. LABORATORY STUDIES: White count is at 4,600, hemoglobin is down to 8.5, hematocrit 25.8, platelet count 222,000. Differential today does show increasing bands but no left shift. Chemistries show normal electrolytes with creatinine at 1.2. Her blood sugars have been fairly elevated up to 412 as well as 117. Liver functions were all within normal limits. C reactive protein was 4.6 which is down from 12.1 on admission. Coagulation studies today show D- dimer was down to 901 compared to a high of 2220. MICROBIOLOGY: Gram stain shows a gram positive cocci in the sputum. Blood cultures remain negative. RADIOLOGY: Chest x-ray per radiology interpretation shows interval improving aeration with linear band of density in the lingula has improved with background reticular opacity suggesting mild interstitial edema. ASSESSMENT: 1. Sepsis secondary to left sided pneumonia, most likely healthcare acquired with positive COVID-19 testing. 2. COVID-19 positive. 3. Elevated D-dimer on Lovenox secondary to #2. 4. Hypertension, stable. 5. Diabetes mellitus, type 2. PLAN: Given that she has been a resident of [facility] and she has had pneumonia previously puts her at a higher risk for an MRSA infection especially as she had a gram stain demonstrating gram positive cocci, therefore will start her on Vancomycin per Pharmacy protocol. She will remain on continued antibiotics in addition to her Vancomycin with Rocephin and azithromycin. Will plan to repeat her labs in the morning for inflammatory markers as per protocol. I anticipate she should be able to go back in the next 2 to 3 days as she continues to trend down to where she is improving on her labs. Until we can transition her back to outpatient management will continue to monitor and treat as needed. #[id number] MTDD
[2020-01-01] MEDS: VERAPAMIL ER 120 MG TAB PO SCH (20:32)
[2020-01-01] MEDS: ATORVASTATIN 20 MG TAB PO SCH (20:33)
[2020-01-01] MEDS: IV SET AND CAP CHANGE INJ INJ SCH (23:28)
[2020-01-02] MEDS: PANTOPRAZOLE SODIUM TAB 40 MG PO SCH (06:17)
[2020-01-02] MEDS: ALBUTEROL SULFATE 2.5 MG/3 ML VIAL NEB SCH ×4 (07:30→20:00)
[2020-01-02] MEDS: INSULIN LISPRO 100 UNITS/ML PEN SUBCU SCH ×4 (08:43→21:17)
[2020-01-02] MEDS: POLYETHYLENE GLYCOL 3350 17 GM PCKT PO SCH (08:48)
[2020-01-02] MEDS: GEMFIBROZIL 600 MG TAB PO SCH ×2 (08:49→21:01)
[2020-01-02] MEDS: FERROUS SULFATE 325 MG TAB PO SCH (08:49)
[2020-01-02] MEDS: guaiFENesin ER TAB 600 MG TAB PO SCH ×2 (08:49→21:00)
[2020-01-02] MEDS: DEXAMETHASONE INJ 10 MG/ML VIAL IV SCH (08:49)
[2020-01-02] MEDS: CARVEDILOL 3.125 MG TAB PO SCH ×2 (08:49→21:00)
[2020-01-02] MEDS: cefTRIAXone SODIUM 1 GM in SODIUM CHL 0.9% 50ML MIN-BAG+ 50 ML IVPB SCH (08:50)
[2020-01-02] MEDS: ENOXAPARIN SODIUM 60 MG/0.6 ML SYG SUBCU SCH ×2 (08:50→21:01)
[2020-01-02] MEDS: SODIUM CHLORIDE 0.9% (FLUSH) 10 ML SYG IV SCH ×2 (08:51→21:18)
[2020-01-02] MEDS: AZITHROMYCIN IV 500 MG in SODIUM CHLORIDE 0.9% 250ML 250 ML IVPB SCH (10:49)
[2020-01-02] MEDS: VANCOMYCIN HCL INJ 750 MG in SODIUM CHLORIDE 0.9% 250ML 250 ML IVPB SCH (12:43)
[2020-01-02] MEDS: VERAPAMIL ER 120 MG TAB PO SCH (21:00)
[2020-01-02] MEDS: ATORVASTATIN 20 MG TAB PO SCH (21:00)
--- NOTE | 2020-01-02 21:03 | PN ---
SUPERVISING PHYSICIAN: Alexi Almaguer M.D. DATE: 01/02/20 SUBJECTIVE: The patient notes that she feels a little bit better today. Did have a cough but she is not quite as short of breath. She has not had any nausea, vomiting or diarrhea, or any chest pain. OBJECTIVE: VITAL SIGNS: Temperature 98.3, pulse 75, blood pressure 156/80, respirations 18, satting 98% currently on 1.5 liters nasal cannula. GENERAL: The patient is resting comfortably. Does not appear to be in any distress. CHEST: Lung sounds are much improved from yesterday, just some very faint rhonchi heard but not quite as prominent as yesterday on the left. The right remains essentially clear, just diminished. HEART: Regular rate and rhythm. ABDOMEN: Soft, non-tender. Positive bowel sounds. EXTREMITIES: Shows no edema. NEUROLOGIC: She is alert and oriented times three. LABORATORY STUDIES: White count still remains low at 3.4, hemoglobin 8.8, hematocrit 26.1 which does appear to be stable. Platelet count 189,000. Differential still continues to show non-left shift with electrolytes showing to be within normal limits, BUN 22, creatinine 1.1. Will recheck C reactive protein and a D-dimer in the morning. No chest films were completed today. MICROBIOLOGY: Urine culture final report shows no growth at 36 hours. Sputum cultures shows a gram positive cocci. Still pending final results. Blood cultures remain negative after 3 days. ASSESSMENT: 1. Left sided pneumonia, healthcare acquired with sepsis. 2. COVID-19 pneumonia contributing to #1. 3. Elevated D-dimer on Lovenox secondary to #1. 4. Hypertension, stable. 5. Diabetes mellitus, type 2 showing to be stable. PLAN: Will continue current plan at this point for coverage for MRSA as well as with Vancomycin and additional antibiotics with Rocephin and azithromycin since her urine was clean. Will await final sputum culture results. Will plan to repeat labs per protocol in the morning. Will hold off on any repeat chest x- ray at this point as she is showing some improvement. Anticipate if she continues to show good trends towards baseline, we can get her out of here depending on her number of days since she was showing symptoms. Until we can transition back to outpatient management will continue to monitor and treat as needed. #[id number] MTDD
[2020-01-03] MEDS: PANTOPRAZOLE SODIUM TAB 40 MG PO SCH (06:03)
[2020-01-03] MEDS: INSULIN LISPRO 100 UNITS/ML PEN SUBCU SCH ×4 (07:59→21:01)
[2020-01-03] MEDS: ALBUTEROL SULFATE 2.5 MG/3 ML VIAL NEB SCH ×4 (08:45→20:20)
[2020-01-03] MEDS: GEMFIBROZIL 600 MG TAB PO SCH ×2 (08:52→20:48)
[2020-01-03] MEDS: FERROUS SULFATE 325 MG TAB PO SCH (08:52)
[2020-01-03] MEDS: BIFIDOBACTERIUM INFANTIS 4 MG CAP PO SCH (08:52)
[2020-01-03] MEDS: guaiFENesin ER TAB 600 MG TAB PO SCH ×2 (08:52→20:48)
[2020-01-03] MEDS: cefTRIAXone SODIUM 1 GM in SODIUM CHL 0.9% 50ML MIN-BAG+ 50 ML IVPB SCH (08:52)
[2020-01-03] MEDS: CARVEDILOL 3.125 MG TAB PO SCH ×2 (08:52→20:48)
[2020-01-03] MEDS: POLYETHYLENE GLYCOL 3350 17 GM PCKT PO SCH (08:53)
[2020-01-03] MEDS: ENOXAPARIN SODIUM 60 MG/0.6 ML SYG SUBCU SCH ×2 (08:53→20:49)
[2020-01-03] MEDS: SODIUM CHLORIDE 0.9% (FLUSH) 10 ML SYG IV SCH ×2 (08:53→20:50)
[2020-01-03] MEDS: DEXAMETHASONE INJ 10 MG/ML VIAL IV SCH (09:49)
[2020-01-03] MEDS: AZITHROMYCIN IV 500 MG in SODIUM CHLORIDE 0.9% 250ML 250 ML IVPB SCH (09:49)
[2020-01-03] MEDS: VANCOMYCIN HCL INJ 750 MG in SODIUM CHLORIDE 0.9% 250ML 250 ML IVPB SCH (11:38)
[2020-01-03] MEDS: ATORVASTATIN 20 MG TAB PO SCH (20:48)
[2020-01-03] MEDS: VERAPAMIL ER 120 MG TAB PO SCH (20:48)
[2020-01-04] MEDS: PANTOPRAZOLE SODIUM TAB 40 MG PO SCH (06:58)
[2020-01-04] MEDS: INSULIN LISPRO 100 UNITS/ML PEN SUBCU SCH ×4 (07:15→20:57)
[2020-01-04] MEDS: ALBUTEROL SULFATE 2.5 MG/3 ML VIAL NEB SCH ×4 (07:46→20:40)
[2020-01-04] MEDS: GEMFIBROZIL 600 MG TAB PO SCH ×2 (09:07→20:52)
[2020-01-04] MEDS: guaiFENesin ER TAB 600 MG TAB PO SCH ×2 (09:07→20:52)
[2020-01-04] MEDS: cefTRIAXone SODIUM 1 GM in SODIUM CHL 0.9% 50ML MIN-BAG+ 50 ML IVPB SCH (09:08)
[2020-01-04] MEDS: CARVEDILOL 3.125 MG TAB PO SCH ×2 (09:08→20:53)
[2020-01-04] MEDS: BIFIDOBACTERIUM INFANTIS 4 MG CAP PO SCH (09:08)
[2020-01-04] MEDS: DEXAMETHASONE INJ 10 MG/ML VIAL IV SCH (09:09)
[2020-01-04] MEDS: FERROUS SULFATE 325 MG TAB PO SCH (09:10)
[2020-01-04] MEDS: ENOXAPARIN SODIUM 60 MG/0.6 ML SYG SUBCU SCH ×2 (09:11→20:53)
[2020-01-04] MEDS: POLYETHYLENE GLYCOL 3350 17 GM PCKT PO SCH (09:12)
[2020-01-04] MEDS: SODIUM CHLORIDE 0.9% (FLUSH) 10 ML SYG IV SCH (09:13)
[2020-01-04] MEDS: AZITHROMYCIN IV 500 MG in SODIUM CHLORIDE 0.9% 250ML 250 ML IVPB SCH ×2 (11:00→17:45)
[2020-01-04] MEDS ORDERED: MAGNESIUM SULFATE PREMIX 2GM 2 GM in PREMIX BAG 1 BAG IVPB ONE (11:34)
--- NOTE | 2020-01-04 11:52 | RAD ---
EXAM: Chest,1 View CLINICAL INDICATION: COVID-19 COMPARISON: 01/01/2020 FINDINGS: A single view of the chest was obtained. The heart size is normal. The pulmonary vascularity is unremarkable. Minimal atelectasis is seen in the left midlung. As appears stable from prior. The lungs are otherwise clear. There is no pneumothorax or pleural effusion. IMPRESSION: Stable mild atelectasis in the left midlung. Otherwise, no acute process in the chest. Electronically signed by: Armando Sales MD 01/04/2020 11:50 AM CDT
[2020-01-04] MEDS ORDERED: AZITHROMYCIN 250 MG TAB PO SCH (15:00)
[2020-01-04] MEDS: MAGNESIUM OXIDE 400 MG TAB PO SCH (17:03)
--- NOTE | 2020-01-04 17:25 | PN ---
SUPERVISING PHYSICIAN: Alexi Almaguer M.D. DATE: 01/03/20 SUBJECTIVE: The patient is sitting up in her room. She looks much better today than she has in the past few days. Her lab has somewhat worsened. Clinically she is improved. She denies shortness of breath except with exertion. No nausea or vomiting. OBJECTIVE: VITAL SIGNS: Temperature 97.5, heart rate 76, blood pressure 157/77, respiratory rate 20, O2 saturation 94% on 2 liters nasal cannula. She does drop to the mid 80s without oxygen in her room. She does not rebound with rest, except to the 88 or 89%. With oxygen, her saturations are 93 to 95%. RESPIRATORY: Diminished breath sounds throughout. She does have a few scattered rhonchi. CARDIAC: Regular rate and rhythm. GASTROINTESTINAL: Abdomen is soft, nondistended, non-tender. NEUROLOGIC: She is awake, alert and oriented times three. LABORATORY: WBCs are 3.5 with hemoglobin of 9.6, hematocrit 29.3. She does have 19 bands. D-dimer is 1,330. Electrolytes are basically within normal limits. BUN is 21, creatinine is 1.09. CRP is 1.9. Final blood cultures show no growth after 5 days. ASSESSMENT: 1. Left sided pneumonia, healthcare acquired with sepsis. 2. COVID-19 pneumonia contributing to #1. 3. Elevated D-dimer on Lovenox secondary to #1. 4. Hypertension, stable. 5. Diabetes mellitus, type 2 showing to be stable. PLAN: We will continue present supportive care. She has clinically improved. I am not sure why she has bandemia, but will monitor that closely. I will order a chest x-ray plus routine labs and COVID labs for in the morning. She is on Vancomycin, Rocephin and azithromycin as well as Decadron and Lovenox at 1 mg per kg b.i.d. Hopefully her labs will stable out and she will continue to improve clinically, and she can be discharged back to [facility]. Until then, we will continue to monitor closely and follow as needed. #[id number] [facility]
[2020-01-04] MEDS: VANCOMYCIN HCL INJ 750 MG in SODIUM CHLORIDE 0.9% 250ML 250 ML IVPB SCH (17:44)
[2020-01-04] MEDS: ATORVASTATIN 20 MG TAB PO SCH (20:52)
[2020-01-04] MEDS: CEFDINIR 300 MG CAP PO SCH (20:53)
[2020-01-04] MEDS: VERAPAMIL ER 120 MG TAB PO SCH (20:53)
--- NOTE | 2020-01-04 22:09 | PN ---
SUPERVISING PHYSICIAN: Alexi Almaguer M.D. DATE: 01/04/20 SUBJECTIVE: The patient is sitting up in her chair in her room. She has had some shortness of breath and coughing. She denies any chest pain, nausea or vomiting. OBJECTIVE: VITAL SIGNS: Temperature 98.9, heart rate 69, blood pressure 134/96, respiratory rate 18 to 22, O2 saturation 95% on 2 liters nasal cannula. RESPIRATORY: Diminished breath sounds throughout with a few scattered rhonchi. CARDIAC: Regular rate and rhythm. GASTROINTESTINAL: Abdomen is soft, nondistended, non-tender. Bowel sounds are positive. NEUROLOGIC: She is awake, alert and oriented times three. LABORATORY: WBCs are 3.7 with hemoglobin 8.9, hematocrit 27.1. D-dimer is 1,680. Sodium 138, potassium 3.7, chloride 98, carbon dioxide 31, BUN 23, creatinine 0.96, calcium 8.1, magnesium 1.7, C reactive protein is 1.6. Sputum culture shows moderate normal althea. Preliminary blood cultures show no growth after 5 days. C-Difficile testing is negative for antigen and toxin. Chest x-ray shows stable mild atelectasis in the left mid lung, otherwise no acute process in the chest. All other labs and films have been reviewed via the EMR. ASSESSMENT: 1. Left sided pneumonia, healthcare acquired with sepsis. 2. COVID-19 pneumonia contributing to #1. 3. Elevated D-dimer on Lovenox secondary to #1. 4. Hypertension, stable. 5. Diabetes mellitus, type 2 showing to be stable. PLAN: We will continue present supportive care. Earlier today the patient lost her IV site and she is clinically improving. Nursing was unable to get a site at this time, so I have switched her over to oral Cefdinir and oral azithromycin. I have discontinued her IV Vancomycin and changed her to oral Decadron. I have ordered routine lab and a chest x-ray for in the morning as well as routine COVID lab. If she clinically digresses, she may need an IV site or a central line, but hopefully she can be discharged tomorrow or the next day on her oral medications. Otherwise we will continue to monitor closely and follow as needed. #[id number] MTDD
[2020-01-05] MEDS: PROMETHAZINE W/CODEINE SYR 5 ML UD PO PRN ×2 (01:33→08:09)
[2020-01-05] MEDS: PANTOPRAZOLE SODIUM TAB 40 MG PO SCH (05:54)
[2020-01-05] MEDS ORDERED: DEXAMETHASONE 4 MG TAB ONE (07:11)
[2020-01-05] MEDS: INSULIN LISPRO 100 UNITS/ML PEN SUBCU SCH (08:06)
[2020-01-05] MEDS: ACETAMINOPHEN 325 MG TAB PO PRN (08:08)
[2020-01-05] MEDS: guaiFENesin ER TAB 600 MG TAB PO SCH (08:09)
[2020-01-05] MEDS: CEFDINIR 300 MG CAP PO SCH (08:09)
[2020-01-05] MEDS: MAGNESIUM OXIDE 400 MG TAB PO SCH (08:09)
[2020-01-05] MEDS: FERROUS SULFATE 325 MG TAB PO SCH (08:09)
[2020-01-05] MEDS: GEMFIBROZIL 600 MG TAB PO SCH (08:09)
[2020-01-05] MEDS: BIFIDOBACTERIUM INFANTIS 4 MG CAP PO SCH (08:09)
[2020-01-05] MEDS: CARVEDILOL 3.125 MG TAB PO SCH (08:09)
[2020-01-05] MEDS: ENOXAPARIN SODIUM 60 MG/0.6 ML SYG SUBCU SCH (08:10)
[2020-01-05] MEDS: POLYETHYLENE GLYCOL 3350 17 GM PCKT PO SCH (08:10)
[2020-01-05] MEDS ORDERED: DEXAMETHASONE 4 MG TAB PO SCH (09:00)
[2020-01-05 09:12] VITALS: TEMP 98.4
[2020-01-05] MEDS: ALBUTEROL SULFATE 2.5 MG/3 ML VIAL NEB SCH ×2 (10:35→11:30)
[2020-01-05 13:30] VITALS: BP 130/76; O2SAT 97
--- NOTE | 2020-01-05 15:45 | DS ---
SUPERVISING PHYSICIAN: Steven Washington M.D. ADMISSION DIAGNOSIS: 1. Sepsis related to left sided pneumonia. 2. Elevated D-dimer. 3. High risk for COVID-19. 4. Hypertension. 5. Diabetes mellitus type 2. DISCHARGE DIAGNOSIS: 1. COVID-19 pneumonia. 2. Hypertension. 3. Diabetes mellitus type 2. 4. Mild anemia. HOSPITAL COURSE: This is a 79 year-old female who lives at [facility] . She has had upper respiratory symptoms for several days, however O2 saturations dropped into the 80s and she does not normally wear oxygen. Apparently she has been exposed to COVID-19 patient at [facility]. In the Emergency Room, she was evaluated to be hypoxemic and was placed on oxygen. Labs were done. COVID-19 testing was done as well. She was placed on Rocephin and azithromycin as well as therapeutic Lovenox and Decadron. She did, in fact, test positive for COVID-19. Throughout the admission she was on nebulizers, steroids and antibiotics, and slowly progressed. She still requires oxygen but hypoxia has not worsened. Therefore today on date of discharge the patient is alert and oriented, not in distress. She is on 1 liter of oxygen but does desaturate with it off. I will discharge her back to [facility] on 1 mg per kg b.i.d. of Lovenox for another 10 days. I will give her another 10 days of Cefdinir and another 3 days of azithromycin. I have also given her another 10 days of Dexamethasone. Her activity is at tolerated. Diet as tolerated. Followup with Dr. Conti at the [facility]. #[id number] [facility]
== END 2020-01-05 13:25 | DRG 871 ==
LOC: ER 19:38 → MS 22:10 → OBSVTOIN 22:10
PROVIDERS: ADMIT Nurse Practitioner Acute Care; ATTEND Nurse Practitioner
DX: A41.89 Other specified sepsis (principal); U07.1 COVID-19; J12.89 Other viral pneumonia; R09.02 Hypoxemia; Y95 Nosocomial condition; I10 Essential (primary) hypertension; E11.65 Type 2 diabetes mellitus with hyperglycemia; E11.40 Type 2 diabetes mellitus with diabetic neuropathy, unspecified; D64.9 Anemia, unspecified; R35.0 Frequency of micturition; R39.15 Urgency of urination; E78.5 Hyperlipidemia, unspecified; G89.29 Other chronic pain; I48.91 Unspecified atrial fibrillation; Z79.4 Long term (current) use of insulin; Z79.899 Other long term (current) drug therapy; Z88.8 Allergy status to other drugs, medicaments and biological substances; Z87.891 Personal history of nicotine dependence; Z95.828 Presence of other vascular implants and grafts; Z89.411 Acquired absence of right great toe; Z89.421 Acquired absence of other right toe(s)

== ENCOUNTER 2020-03-25 19:31 | Emergency (ER) | payer MEDICARE, SELFPAY ==
--- NOTE | 2020-03-25 19:53 | ED.PDOC ---
History of Present Illness - General Chief Complaint: General Stated Complaint: Bilateral lower extremity nonpitting edema Time Seen by Provider: 03/25/20 19:34 Additional Information: The patient is an 80-year-old female that presents emergency room with complaints of bilateral nonpitting edema and lower extremities. She says that she had toe amputations bilaterally about a month ago and she initially started with swelling in her ankle but she states in the last 2 days she is getting edema right up to her hip. She states that she is ambulating without any difficulty. Denies any history of blood clot. Denies any fevers or chills - History of Present Illness Timing/Duration: getting worse Severity: moderate Improving Factors: nothing Worsening Factors: nothing Associated Symptoms: denies symptoms Allergies/Adverse Reactions: Allergies Iodine Allergy (Unknown, Verified 08/12/18 09:25) Home Medications: Ambulatory Orders Atorvastatin Calcium [Lipitor] 40 mg PO BEDTIME 05/05/13 Gemfibrozil [Lopid] 600 mg PO BID 07/22/15 Carvedilol [Coreg] 3.125 mg PO BID 11/29/19 Famotidine 20 mg PO DAILY 11/30/19 Ferrous Sulfate [Fe Tabs] 325 mg PO DAILY 11/30/19 Glucagon Inj 1 mg IM PRN 11/30/19 Insulin Aspart [Novolog Flexpen] See Protocol SC ACHS PRN 11/30/19 Insulin Detemir [Levemir Pen] 16 unit SUBCU BEDTIME 11/30/19 Polyethylene Glycol 3350 [Miralax] 17 gm PO DAILY 11/30/19 Verapamil HCl [Verapamil HCl ER] 120 mg PO BEDTIME 11/30/19 Acetaminophen [Tylenol] 650 mg PO Q6HR PRN 12/30/19 Azithromycin Tab [Zithromax Tab] 500 mg PO Q24H 3 Days #3 tab 01/05/20 Bifidobacterium Infantis [Align] 4 mg PO DAILY cap 01/05/20 Cefdinir [Omnicef] 300 mg PO BID 10 Days #20 cap 01/05/20 Dexamethasone Tab [Decadron Tab] 6 mg PO DAILY 10 Days #10 tab 01/05/20 Enoxaparin Sodium [Lovenox] 55 mg SUBCU Q12H 10 Days #20 syg 01/05/20 Review of Systems - Review of Systems Constitutional: Denies: chills, fever EENTM: Denies: see HPI, eye pain Respiratory: Denies: see HPI, cough, short of breath Cardiology: States: edema. Denies: chest pain, palpitations Gastrointestinal/Abdominal: Denies: abdominal pain, constipation, diarrhea, nausea Genitourinary: Denies: see HPI, discharge, hematuria Musculoskeletal: Denies: back pain, muscle pain Neurological: Denies: anxiety, depressed, numbness, paresthesia Endocrine: Denies: flushing, intolerance to cold, intolerance to heat, increased urine, unexplained weight gain Hematologic/Lymphatic: Denies: anemia, easy bleeding, easy bruising Past Medical History (General) - Patient Medical History Hx Seizures: No Hx Stroke: No Hx Dementia: No Hx Asthma: No Hx of COPD: No Hx Cardiac Disorders: Yes - A FIB Hx Congestive Heart Failure: No Hx Pacemaker: No Hx Hypertension: Yes Hx Thyroid Disease: No Hx Diabetes: Yes Hx Gastroesophageal Reflux: No Hx Renal Disease: No Hx Cancer: No Hx of HIV: No Hx Hepatitis C: No Hx MRSA: Yes MRSA Source:: Wound - Vaccination History Hx Tetanus, Diphtheria Vaccination: Yes Hx Influenza Vaccination: Yes Hx Pneumococcal Vaccination: Yes - Social History Hx Tobacco Use: No Hx Chewing Tobacco Use: No Hx Alcohol Use: No Hx Substance Use: No Hx Substance Use Treatment: No Hx Depression: No Hx Physical Abuse: No Hx Emotional Abuse: No Hx Suspected Abuse: No Family Medical History - Family History Mother Family History: Unknown Hx Family Cancer: Yes Physical Exam - Physical Exam General Appearance: Alert, Anxious Ears, Nose, Throat: hearing grossly normal, normal ENT inspection, normal pharynx Neck: non-tender, supple Respiratory: chest non-tender, lungs clear, normal breath sounds, no respiratory distress Cardiovascular/Chest: regular rate, rhythm, no JVD, JVD, other - Nonpitting edema bilaterally Peripheral Pulses: radial,right: 2+, radial,left: 2+, dorsalis pedis,right: 2+, dorsalis pedis,left: 2+ Gastrointestinal/Abdominal: normal bowel sounds, non tender, soft Back Exam: normal inspection, no CVA tenderness, no vertebral tenderness Extremity: calf tenderness, pedal edema, swelling, other - Her extremity made worse on the left compared to the right. Nonpitting Neurologic: science technician II-XII nml as tested, no motor/sensory deficits, alert, normal mood/affect, oriented x 3 DTR: 2+: Achilles, left, Achilles, right Skin Exam: normal color Progress - Progress Progress: 03/25/20 21:20 The patient is resting comfortably discussed results findings with the patient. Discussed my concerns of a DVT and the need for lower extremity Dopplers. The patient and the family at bedside agreed to transfer to [facility] for Dopplers. - EKG/XRAY/CT EKG: Sinus - Normal sinus rhythm with incomplete right bundle branch block, left Anterior fascicular block. QT, QRS and [place] within normal limits XRAY: chest - Pulmonary vascular congestion Departure - Departure Clinical Impression: CHF (congestive heart failure) Disposition: Transfer to Hospital Condition: Fair Departure Forms: ED Discharge - Pt. Copy, Patient Portal Self Enrollment Referrals: [facility] [Primary Care Provider] - 1-2 Weeks Home Medications: Ambulatory Orders Atorvastatin Calcium [Lipitor] 40 mg PO BEDTIME 05/05/13 Gemfibrozil [Lopid] 600 mg PO BID 07/22/15 Carvedilol [Coreg] 3.125 mg PO BID 11/29/19 Famotidine 20 mg PO DAILY 11/30/19 Ferrous Sulfate [Fe Tabs] 325 mg PO DAILY 11/30/19 Glucagon Inj 1 mg IM PRN 11/30/19 Insulin Aspart [Novolog Flexpen] See Protocol SC ACHS PRN 11/30/19 Insulin Detemir [Levemir Pen] 16 unit SUBCU BEDTIME 11/30/19 Polyethylene Glycol 3350 [Miralax] 17 gm PO DAILY 11/30/19 Verapamil HCl [Verapamil HCl ER] 120 mg PO BEDTIME 11/30/19 Acetaminophen [Tylenol] 650 mg PO Q6HR PRN 12/30/19 Azithromycin Tab [Zithromax Tab] 500 mg PO Q24H 3 Days #3 tab 01/05/20 Bifidobacterium Infantis [Align] 4 mg PO DAILY cap 01/05/20 Cefdinir [Omnicef] 300 mg PO BID 10 Days #20 cap 01/05/20 Dexamethasone Tab [Decadron Tab] 6 mg PO DAILY 10 Days #10 tab 01/05/20 Enoxaparin Sodium [Lovenox] 55 mg SUBCU Q12H 10 Days #20 syg 01/05/20
--- NOTE | 2020-03-25 20:05 | RAD ---
EXAM DESCRIPTION: Chest,1 View CLINICAL HISTORY: 80 years Female, [place] COMPARISON: 01/04/2020 TECHNIQUE: Single AP chest radiograph. FINDINGS: Bilateral hazy pulmonary opacities and pulmonary vascular congestion consistent with edema. No pneumothorax or pleural effusion. Cardiomegaly. Normal osseous structures. IMPRESSION: Pulmonary vascular congestion/edema. Superimposed infection not excluded. Electronically signed by: Armando Castillo MD 03/25/2020 8:03 PM CDT
[2020-03-25] MEDS ORDERED: FUROSEMIDE INJ 40 MG/4 ML VIAL IV ONE (20:28)
[2020-03-25 20:36] VITALS: O2SAT 97
[2020-03-25 21:05] VITALS: BP 172/86
[2020-03-25 23:49] VITALS: TEMP 97.4
== END 2020-03-25 21:50 | disposition short-term general hospital (02) ==
LOC: ER 19:31
DX: U07.1 COVID-19 (principal); I50.9 Heart failure, unspecified; I45.2 Bifascicular block; E11.9 Type 2 diabetes mellitus without complications; I11.0 Hypertensive heart disease with heart failure; I48.91 Unspecified atrial fibrillation; Z79.899 Other long term (current) drug therapy; Z79.4 Long term (current) use of insulin; Z91.041 Radiographic dye allergy status
CPT/HCPCS: 36415; 71045; 80048; 80076; 82550; 82553; 83605; 83880; 84484; 85025; 85610; 85730; 87486; 87581; 87633; 87635; 93005; J1940